=== PATIENT | male | born 1940 | race Caucasian/White ===

== ENCOUNTER 2021-04-28 13:17 | Inpatient (IN) | payer MEDICARE ==
[2021-04-28] VITALS (7 sets, daily range): BP systolic 109–149; BP diastolic 66–79
[~2021-04-28] VITALS: Ht 170.2 cm; Wt 73.5 kg
--- NOTE | 2021-04-28 13:24 | NUR ---
DR TERRLEL AT BEDSIDE
[2021-04-28] MEDS ORDERED: IV NS 0.9% 1,000 ML BAG IV ONE (13:30)
--- NOTE | 2021-04-28 13:55 | NUR ---
URINE SAMPLE COLLECTED VIA CARSON CATHETER. SENT SAMPLE TO LAB
--- NOTE | 2021-04-28 13:55 | NUR ---
PLACED IV ACCESS ON L AC #18 G, INTACT AND PATENT
[2021-04-28 13:58] LABS: BASOPHILS % (AUTO) 0.4 % (0.0-2.0); EOSINOPHILS % (AUTO) 0.1 % (0.0-6.0); HEMATOCRIT 33 % (39-51); HEMOGLOBIN 11.4 g/dL (13.5-17.5); LYMPHOCYTES # (AUTO) 0.5 K/uL (0.8-4.8); LYMPHOCYTES % (AUTO) 6.8 % (20.0-44.0); MEAN CORPUSCULAR HGB CONC 34 g/dl (31.0-36.0); MEAN CORPUSCULAR VOLUME 95 fL (80-96); MONOCYTES # (AUTO) 0.3 K/uL (0.1-1.30); MONOCYTES % (AUTO) 4.7 % (2.0-12.0); NEUTROPHILS # (AUTO) 5.9 K/uL (1.8-8.9); PLATELET COUNT (AUTO) 212 K/uL (150-450); RED BLOOD CELL COUNT(AUTO) 3.51 MIL/uL (4.5-6.0); WHITE BLOOD COUNT (AUTO) 6.8 K/uL (4.3-11.0)
[2021-04-28 14:28] LABS: CALCIUM, SERUM 8.5 mg/dL (8.5-10.1); CARBON DIOXIDE 27 mmol/L (21-32); CHLORIDE 105 mmol/L (98-107); CREATININE 2.2 mg/dL (0.6-1.3); GLUCOSE 155 mg/dL (74-106); SODIUM SERUM 143 mmol/L (136-145); UREA NITROGEN, BLOOD 55 mg/dL (7-18)
--- NOTE | 2021-04-28 14:28 | NUR ---
COVID SWAB DONE AND SENT TO LAB
[2021-04-28] MEDS ORDERED: PYRI60TA PO (14:29)
[2021-04-28] MEDS ORDERED: MESA0.37 PO (14:29)
[2021-04-28] MEDS ORDERED: MEMA10TA PO (14:29)
[2021-04-28] MEDS ORDERED: NIFE90TA2 PO (14:29)
[2021-04-28] MEDS ORDERED: CARB1TAB40 PO (14:29)
[2021-04-28] MEDS ORDERED: APIX2.5T PO (14:29)
[2021-04-28] MEDS ORDERED: FLUD0.1T PO (14:29)
[2021-04-28 14:33] LABS: ALANINE AMINOTRANSFERASE 11 U/L (12-78); ALBUMIN 2.7 g/dL (3.4-5.0); ALKALINE PHOSPHATASE 285 U/L (46-116); ASPARTATE AMINOTRANSFERASE 28 U/L (15-37); BILIRUBIN,DIRECT 0.2 mg/dL (0.0-0.2); BILIRUBIN,TOTAL 0.7 mg/dL (0.2-1.0); TOTAL PROTEIN, SERUM 6.5 g/dL (6.4-8.2)
--- NOTE | 2021-04-28 14:53 | NUR ---
PANEL ON-CALL PAGED
[2021-04-28 14:58] LABS: BILIRUBIN,URINE SMALL (NEGATIVE); COLOR,URINE YELLOW (YELLOW); LEUKOCYTE ESTERASE ,URINE NEGATIVE (NEGATIVE); NITRITE, URINE NEGATIVE (NEGATIVE); PROTEIN,URINE TRACE mg/dl (NEGATIVE); UGLUCOSE NEGATIVE (NEGATIVE); UROBILINOGEN,URINE 0.2 EU/dL (0.2)
[2021-04-28] MEDS ORDERED: PIPERACILLIN /TAZOBACTAM 3.375 G in IV D5W 50 ML IV ONE (15:00)
[2021-04-28] MEDS ORDERED: VANCOMYCIN 1 GM in IV D5W 250 ML IV ONE (15:00)
[2021-04-28 15:10] LABS: BACTERIA,URINE RARE /HPF (None Seen); RBC,URINE 0-2 /HPF (0-2); SQUAMOUS EPITHELIAL CELL,UR 0-2 /HPF (None Seen); URINE AMORPHOUS URATE Few /HPF (None Seen); WBC,URINE 0-2 /HPF (0-3)
[2021-04-28 15:11] LABS: COARSE GRANULAR CASTS,URINE Few /LPF (None Seen)
--- NOTE | 2021-04-28 16:01 | NUR ---
GOT ICU 259
--- NOTE | 2021-04-28 16:30 | NUR ---
REPORT GIVEN TO ERICKSON MALAVE FOR BECCA
--- NOTE | 2021-04-28 17:00 | NUR ---
TRANSFERRED TO ICU IN STABLE CONDITION
--- NOTE | 2021-04-28 17:00 | NUR ---
DIRECTOR OF ASSESSMENT NOTES PATIENT ADMITTED FROM ER 80Y/OLD MALE ON Dx OF ARF. PATIENT ON NON REBREATHER MASK O2-100%, VSS, SR-76 ON BEDSIDE MONITOR. PATIENT AWAKE CONFUSED, COMBATIVE, WAS KICKING, APPLIED SOFT RESTRAIN BILATERAL WRISTS, AND MITTENS . PATIENT TRYING TO REMOVE CARSON CATHETER. SKIN ASSESSMENT DONE PICTURE TAKEN, WOUND CONSULT TRIGGERED. SEEN HOSPITALIST DR LEHMAN. IV ACCESS ON LEFT AC AREA INTACT.CALL LIGHT WITHIN TO REACH. WILL FOLLOW UP.
--- NOTE | 2021-04-28 19:10 | NUR ---
RN NOTES RECEIVED REPORT FROM MORNING RN. PATIENT IN BED FAMILY AT BEDSIDE. ON NON REBREATHER MASK AT 15LPM SATING 100%. PATIENT ON BILATERAL SOFT RESTRAINTS AND BILATERAL MITTENS. WITH CARSON CATHETER CONNECTED TO URINR BAG PATENT DRAINING YELLOWISH URINE. SIDERAILS UP FOR SAFETY. HOB ELEVATED. CALL LIGHT WITHIN REACH. BED ON LOWEST POSITION AND LOCKED. WILL CLOSELY MONITOR THE PATIENT
[2021-04-28] MEDS ORDERED: ENOXAPARIN SODIUM 30 MG/0.3 ML DISP.SYRIN SQ SCH (19:30)
[2021-04-28] MEDS ORDERED: ONDANSETRON HCL/PF 4 MG/2 ML VIAL IVP PRN (19:30)
[2021-04-28] MEDS ORDERED: NOREPINEPHRINE 8 MG in IV NS 0.9% 242 ML IV PRN ×2 (19:30→20:00)
[2021-04-28] MEDS ORDERED: Z GUARD REMEDY 4 OZ OINT TP PRN (19:30)
[2021-04-28] MEDS ORDERED: ACETAMINOPHEN 325 MG TABLET PO PRN (19:30)
[2021-04-28] MEDS: IPRATROPIUM NEB FS 0.5 MG/2.5 ML AMPUL.NEB NEB SCH ×2 (19:54→23:51)
[2021-04-28] MEDS: ALBUTEROL FS 2.5 MG/3 ML VIAL.NEB NEB SCH ×2 (19:54→23:51)
--- NOTE | 2021-04-28 20:30 | NUR ---
RN NOTES RT AT BEDSIDE CHANGE NON REBREATHER TO NASAL CANULA AT 3 LPM. TOLERATING WELL SATING 97%. WILL CONTINUE TO MONITOR THE PATIENT
[2021-04-28] MEDS: HYDROCORTISONE SOD SUCCINATE 100 MG/2 ML VIAL IV SCH (21:09)
[2021-04-28] MEDS: ZOSYN IVPB 3.375 G in IV D5W 50ml IV SCH (23:48)
[2021-04-29] VITALS (21 sets, daily range): BP systolic 114–168; BP diastolic 62–120
[2021-04-29] MEDS ORDERED: PIPERACILLIN /TAZOBACTAM 2.25 G in IV D5W 50 ML IV SCH ×2
[2021-04-29] MEDS: IV NS 0.9% 1,000 ML IV PRN ×2 (02:45→11:05)
[2021-04-29] MEDS: IPRATROPIUM NEB FS 0.5 MG/2.5 ML AMPUL.NEB NEB SCH ×6 (03:17→22:50)
[2021-04-29] MEDS: ALBUTEROL FS 2.5 MG/3 ML VIAL.NEB NEB SCH ×6 (03:17→22:50)
[2021-04-29 04:28] LABS: BASOPHILS % (AUTO) 0.1 % (0.0-2.0); HEMATOCRIT 34 % (39-51); HEMOGLOBIN 11.3 g/dL (13.5-17.5); LYMPHOCYTES # (AUTO) 0.3 K/uL (0.8-4.8); LYMPHOCYTES % (AUTO) 3.6 % (20.0-44.0); MEAN CORPUSCULAR HGB CONC 34 g/dl (31.0-36.0); MEAN CORPUSCULAR VOLUME 95 fL (80-96); MONOCYTES # (AUTO) 0.2 K/uL (0.1-1.30); MONOCYTES % (AUTO) 2.1 % (2.0-12.0); NEUTROPHILS # (AUTO) 7.4 K/uL (1.8-8.9); NEUTROPHILS % (AUTO) 94.2 % (43.0-81.0); PLATELET COUNT (AUTO) 173 K/uL (150-450); RED BLOOD CELL COUNT(AUTO) 3.55 MIL/uL (4.5-6.0); WHITE BLOOD COUNT (AUTO) 7.8 K/uL (4.3-11.0)
[2021-04-29 04:52] LABS: ALANINE AMINOTRANSFERASE 15 U/L (12-78); ALBUMIN 2.7 g/dL (3.4-5.0); ALKALINE PHOSPHATASE 279 U/L (46-116); ASPARTATE AMINOTRANSFERASE 27 U/L (15-37); BILIRUBIN,TOTAL 0.6 mg/dL (0.2-1.0); CALCIUM, SERUM 8.3 mg/dL (8.5-10.1); CARBON DIOXIDE 29 mmol/L (21-32); CHLORIDE 106 mmol/L (98-107); CREATININE 2.1 mg/dL (0.6-1.3); GLUCOSE 140 mg/dL (74-106); MAGNESIUM 1.9 mg/dL (1.8-2.4); PHOSPHORUS 4.5 mg/dL (2.5-4.9); POTASSIUM 4.4 mmol/L (3.5-5.1); SODIUM SERUM 143 mmol/L (136-145); TOTAL PROTEIN, SERUM 6.8 g/dL (6.4-8.2); UREA NITROGEN, BLOOD 57 mg/dL (7-18)
[2021-04-29 04:59] LABS: CHOLESTEROL 161 mg/dL (<200); HDL CHOLESTEROL 94 mg/dL (40-60); LDL 55 mg/dL (0-99); THYROID STIMULATING HORMONE 2.387 uIU/mL (0.358-3.74); TRIGLYCERIDES 38 mg/dL (30-150)
[2021-04-29 05:03] LABS: IRON, SERUM 14 ug/dl (50-175); TOTAL IRON BINDING CAPACITY 199 ug/dl (250-450)
[2021-04-29] MEDS: HYDROCORTISONE SOD SUCCINATE 100 MG/2 ML VIAL IV SCH ×3 (05:07→21:40)
[2021-04-29] MEDS: ZOSYN IVPB 3.375 G in IV D5W 50ml IV SCH ×4 (05:55→23:37)
--- NOTE | 2021-04-29 06:47 | NUR ---
RN NOTES PATIENT REMAINS STABLE NO SIGNIFICANT CHANGES IN HEALTH CONDITION. PATIENT ON ON 2 LPM VIA NASAL CANULA. CARSON CATHETER PATENT. IVF NS @ 75CC/HR PATENT.STILL WITH BILATERAL SOFT RESTRAINTS AND BILATERAL MITTENS. HOB ELEVATED. CALL LIGHT WITHIN REACH BED ON LOWEST POSITION AND LOCKED. ALL NEEDS ATTENDED KEPT CLEAN AND DRY AT ALL TIMES. WILL ENDORSED TO MORNING NURSE FOR BECCA
--- NOTE | 2021-04-29 07:15 | NUR ---
RN OPENING NOTES RECEIVED PT IN BED. ON 2L O2 VIA NC, SATING 100%. NO SOB OR ANY S/S OF DISTRESS NOTED. BILATERAL SOFT WRIST RESTRAINTS AND BILATERAL MITTENS IN PLACE, CHECKED FOR CIRCULATION PER PROTOCOL. CARSON CATHETER IN PLACE DRAINING YELLOW COLORED URINE. SAFETY MEASURES IMPLEMENTED. CALL LIGHT WITHIN REACH. HOB ELEVATED. BED LOCKED AND IN LOWEST POSITION WITH SIDE RAILS UP X2. WILL CONTINUE TO MONITOR.
--- NOTE | 2021-04-29 07:31 | NUR ---
WOUND CARE CONSULT: PT BECOMES AGITATED AND COMBATIVE AT TIMES. DRESSINGS TO BILATERAL ARMS LEFT IN PLACE, DRY AND INTACT. REVIEWED PHOTOS WHICH INDICATE MULTIPLE SKIN TEARS TO ARMS, PRESENT ON ADMISSION. LEFT HIP DRY LESION NOTED AND BONY SACRAL AREA NOTED. DISCUSSED SKIN PROTECTION AND WOUND CARE WITH NURSING STAFF. PT TO BE PLACED ON MEL ISOFLEX LOW AIRLOSS BED. MD IN AGREEMENT WITH PLAN OF CARE.
[2021-04-29] MEDS: NIFEdipine XL (30MG) 30 MG TAB PO SCH ×2 (09:00→10:10)
[2021-04-29] MEDS: MESALAMINE 400 MG CAP PO SCH ×3 (09:00→17:00)
--- NOTE | 2021-04-29 09:30 | NUR ---
RN NOTES DELZICOL, PROCARDIA AND SINEMET CANNOT BE CRUSHED. PT UNABLE TO TAKE MEDS. MADE AWARE.
[2021-04-29] MEDS: PANTOPRAZOLE 40 MG VIAL IV SCH (10:06)
[2021-04-29] MEDS: PYRIDOSTIGMINE BROMIDE 60 MG TABLET PO SCH ×2 (10:07→17:56)
[2021-04-29] MEDS: MEMANTINE HCL 5 MG TABLET PO SCH ×2 (10:07→17:55)
[2021-04-29] MEDS: FLUDROCORTISONE 0.1 MG TABLET PO SCH (10:08)
[2021-04-29] MEDS: CARBIDOPA/LEV CR 50/200 MG 1 UDTAB.SA PO SCH ×2 (10:08→17:00)
[2021-04-29] MEDS: APIXABAN 2.5 MG TABLET PO SCH ×3 (10:09→18:03)
--- NOTE | 2021-04-29 12:00 | NUR ---
RN NOTES PT NOT TOLERATING PO INTAKE. PT COUGHING. MADE AWARE.
[2021-04-29] MEDS ORDERED: VANCOMYCIN HCL 0.75 GM in IV D5W 250 ML IV SCH (15:00)
--- NOTE | 2021-04-29 17:00 | NUR ---
RN NOTES CANNOT CRUSH DELZICOL AND SINEMET. PT COUGHING WITH PO INTAKE. NOT ADMINISTERED. MD AWARE.
[2021-04-29] MEDS: ENSURE ENLIVE CHOC 237 ML CAN PO SCH (17:55)
--- NOTE | 2021-04-29 19:04 | NUR ---
RN NOTES NO SIGNIFICANT CHANGES DURING SHIFT. NO SOB OR ANY S/S OF DISTRESS. ALL DUE MEDS GIVEN. NEEDS ATTENDED. KEPT CLEAN AND COMFORTABLE. FOR SWALLOW EVAL. SAFETY MEASURES IMPLEMENTED. ENDORSED TO NIGHT RN FOR BECCA.
--- NOTE | 2021-04-29 19:58 | NUR ---
ICU/RN: PT TRANSFERRED TO TELE ROOM 114-1 VIA ACLS PROTOCOL WITHOUT ICCIDENT. REPORT TO LANEY MALAVE FOR CONT OF CARE.
--- NOTE | 2021-04-29 20:00 | NUR ---
COMPOUND SPECIALISTTWILL CUTTER NOTES PATIENT ARRIVED ON UNIT VIA PATIENT BED WITH ICU NURSE. RECEIVED PATIENT SLEEPING IN BED EASILY AROUSABLE. A/O X 0. PATIENT WITH REGULAR AND UNLABORED BREATHING ON 2 LPM VIA NASAL CANULA, TOLERATED WELL. NO SIGNS OR SYMPTOMS OF DISTRESS NOTED. NO COMPLAINS OF PAIN OR DISCOMFORT NOTED AT THIS TIME. IV ACCESS LAC G # 20 INFUSING NS @ 75 ML/HR. IV ACCESS PATENT AND INTACT. SAFETY PRECAUTIONS ENFORCED WITH BED LOCKED AND AT LOWEST POSITION. CALL LIGHT WITHIN REACH AT ALL TIMES. WILL CONTINUE TO MONITOR PATIENT.
--- NOTE | 2021-04-29 22:05 | NUR ---
INFORMATION TECH NOTES PATIENT TEMP. 94.1 F. HOSPITALIST AWARE. AVTAR PAIGE ORDERED WILL CONTINUE TO MONITOR PATIENT.
[2021-04-30] VITALS: BP 124/78
[2021-04-30] MEDS: ALBUTEROL FS 2.5 MG/3 ML VIAL.NEB NEB SCH ×6 (02:31→23:13)
[2021-04-30] MEDS: IPRATROPIUM NEB FS 0.5 MG/2.5 ML AMPUL.NEB NEB SCH ×6 (02:31→23:13)
[2021-04-30 04:00] VITALS: BP 123/72
[2021-04-30] MEDS: ZOSYN IVPB 3.375 G in IV D5W 50ml IV SCH ×4 (05:09→23:35)
[2021-04-30] MEDS: HYDROCORTISONE SOD SUCCINATE 100 MG/2 ML VIAL IV SCH ×3 (05:09→21:47)
[2021-04-30] MEDS: IV NS 0.9% 1,000 ML IV PRN ×2 (05:13→23:31)
[2021-04-30 06:42] LABS: BASOPHILS % (AUTO) 0.1 % (0.0-2.0); HEMATOCRIT 30 % (39-51); HEMOGLOBIN 10.2 g/dL (13.5-17.5); LYMPHOCYTES # (AUTO) 0.3 K/uL (0.8-4.8); LYMPHOCYTES % (AUTO) 5.8 % (20.0-44.0); MEAN CORPUSCULAR HGB CONC 34 g/dl (31.0-36.0); MEAN CORPUSCULAR VOLUME 95 fL (80-96); MONOCYTES # (AUTO) 0.3 K/uL (0.1-1.30); MONOCYTES % (AUTO) 6.1 % (2.0-12.0); NEUTROPHILS # (AUTO) 4.6 K/uL (1.8-8.9); PLATELET COUNT (AUTO) 176 K/uL (150-450); RED BLOOD CELL COUNT(AUTO) 3.18 MIL/uL (4.5-6.0); WHITE BLOOD COUNT (AUTO) 5.2 K/uL (4.3-11.0)
--- NOTE | 2021-04-30 06:50 | NUR ---
PROCESSOR SOLID PROPELLANT CLOSING NOTES PATIENT STILL SLEEPING IN BED EASILY AROUSABLE. A/O X 0. PATIENT WITH REGULAR AND UNLABORED BREATHING ON 2 LPM VIA NASAL CANULA, TOLERATED WELL. NO SIGNS OR SYMPTOMS OF DISTRESS NOTED. NO COMPLAINS OF PAIN OR DISCOMFORT NOTED AT THIS TIME. PATIENT ON TELE MONITOR READING SR @ 69 BPM. IV ACCESS LAC G # 18 INFUSING NS @ 75 ML/HR. IV ACCESS PATENT AND INTACT. SAFETY PRECAUTIONS ENFORCED WITH BED LOCKED AND AT LOWEST POSITION. CALL LIGHT WITHIN REACH AT ALL TIMES. WILL ENDORSE CONTINUITY OF CARE TO DAY SHIFT NURSE.
[2021-04-30 07:00] LABS: CALCIUM, SERUM 8.4 mg/dL (8.5-10.1); CARBON DIOXIDE 26 mmol/L (21-32); CHLORIDE 110 mmol/L (98-107); CREATININE 1.9 mg/dL (0.6-1.3); GLUCOSE 132 mg/dL (74-106); MAGNESIUM 2.2 mg/dL (1.8-2.4); PHOSPHORUS 4.2 mg/dL (2.5-4.9); POTASSIUM 3.8 mmol/L (3.5-5.1); SODIUM SERUM 145 mmol/L (136-145); UREA NITROGEN, BLOOD 60 mg/dL (7-18)
--- NOTE | 2021-04-30 07:29 | NUR ---
RN OPENING NOTE PATIENT RECEIVED IN BED, SLEEPING. PATIENT ON 2L O2 NC WITH NO SIGNS OF LABORED BREATHING AT THIS TIME SATURATING 95% OF BEDSIDE PULSE OX MONITOR. CARSON CATH IN PLACE, PATENT. BILATERAL SOFT WRIST AND MITTENS ON, SKIN WARM RESTRAIN SITE WITH SOME SKIN DISCOLORATION AND SKIN TEAR PRESENT ON ADMISSION. LEFT AC 18G IN PLACE RUNNING NS AT 75CC/HR. NO SIGNS OF ACUTE DISTRESS AT THIS TIME. BED LOCKED AND IN LOWEST POSITION, CALL LIGHT WITHIN REACH, 3 SIDE RAILS UP. WILL CONTINUE TO MONITOR.
[2021-04-30 08:00] VITALS: BP 129/61
[2021-04-30] MEDS: ENSURE ENLIVE CHOC 237 ML CAN PO SCH ×2 (08:00→17:00)
--- NOTE | 2021-04-30 08:02 | NUR ---
RN NOTE PATIENT UNABLE TO EAT AT THIS TIME, HIGH RISK FOR ASPIRATION DUE TO ALTERED MENTAL STATUS. SWALLOW EVAL REQUESTED FOR TODAY. PO MEDS AND FOOD WILL BE HELD AT THIS TIME UNTIL CLEARED BY SPEECH THERAPIST. WILL CONTINUE TO MONITOR.
[2021-04-30] MEDS: PANTOPRAZOLE 40 MG VIAL IV SCH (08:07)
[2021-04-30] MEDS: APIXABAN 2.5 MG TABLET PO SCH ×2 (09:00→17:12)
[2021-04-30] MEDS: MESALAMINE 400 MG CAP PO SCH ×2 (09:00→17:00)
[2021-04-30] MEDS: MEMANTINE HCL 5 MG TABLET PO SCH ×2 (09:00→17:11)
[2021-04-30] MEDS: CARBIDOPA/LEV CR 50/200 MG 1 UDTAB.SA PO SCH ×2 (09:00→17:00)
[2021-04-30] MEDS: PYRIDOSTIGMINE BROMIDE 60 MG TABLET PO SCH ×2 (09:00→17:11)
[2021-04-30] MEDS: FLUDROCORTISONE 0.1 MG TABLET PO SCH (09:00)
[2021-04-30] MEDS: NIFEdipine XL (30MG) 30 MG TAB PO SCH (09:00)
[2021-04-30 12:00] VITALS: BP 151/97
--- NOTE | 2021-04-30 14:30 | NUR ---
RN NOTE NG TUBE PLACED, 55CM AT NOSE, SECURED PROPERLY. PENDING CXR FOR PROPER PLACEMENT CONFIRMATION. NO SIGNS OF RESPIRATORY DISTRESS AT THIS TIME, PATIENT SATURATING 95% ON BEDSIDE PULSE OX MONITOR. WILL CONTINUE TO MONITOR.
[2021-04-30 16:00] VITALS: BP 154/90
--- NOTE | 2021-04-30 17:13 | NUR ---
RN NOTE NG TUBE PLACED PER VICE PRESIDENT OF SALES JAN ORDER. PLACEMENT CONFIRMED WITH CXR. PO MEDS ADMINISTERED CRUSHED EXCEPT FOR SINEMET AND DELZICOT (UNABLE TO BE CRUSHED). WILL CONTINUE TO MONITOR.
--- NOTE | 2021-04-30 18:00 | NUR ---
RN NOTE OXYGEN SATURATION DOWN TO 88% ON 2L O2 NC. OXYGEN INCREASED TO 5L O2 NC TO MAINTAIN SATURATION ABOVE 90%.
--- NOTE | 2021-04-30 18:29 | NUR ---
RN NOTE SUGAR OF 143 ON ACCU CHECK. PT REFUSING INSULIN AT THIS TIME HE STATS NOT BEING HUNGRY. WILL CONTINUE TO MONITOR. Addendum: 04/30/21 at 1829 by MIAN BARRERA RN WRONG PT
--- NOTE | 2021-04-30 18:51 | NUR ---
RN NOTE PATIENT PLACED ON 12L O2 SIMPLE MASK TO MAINTAIN SATURATION ABOVE 90%. WILL CONTINUE TO MONITOR.
--- NOTE | 2021-04-30 18:52 | NUR ---
RN CLOSING NOTE PATIENT REMAINS IN BED, AWAKE, CONFUSED. PATIENT ON 12L O2 SIMPLE MASK WITH SOME SIGNS OF LABORED BREATHING, SATURATING 90% OF BEDSIDE MONITOR. CARSON CATH IN PLACE, PATENT. BILATERAL SOFT WRIST AND MITTENS ON, SKIN WARM ON RESTRAIN SITE WITH SOME SKIN DISCOLORATION AND SKIN TEAR PRESENT ON ADMISSION. LEFT AC 18G IN PLACE RUNNING NS AT 75CC/HR. BED LOCKED AND IN LOWEST POSITION, CALL LIGHT WITHIN REACH, 3 SIDE RAILS UP. WILL ENDORSE TO PRETZEL COOKER NURSE.
--- NOTE | 2021-04-30 19:47 | NUR ---
RN NOTE RECEIVED PATIENT IN BED, EYES CLOSED, NON-VERBAL. WITHDRAWS FROM LOCALIZED PAIN. UNABLE TO FOLLOW COMMANDS. NO DISTRESS NOTED. ON TELE MONITORING, SR AT 88 BPM. BREATHING EVEN AND UNLABORED, CURRENTLY RECIEVING BREATHING TREATMENT, OXYGEN SATURATION OF 94 PERCENT. SKIN WARM AND DRY. NOTED WITH NGT ON RIGHT NARE, NO FEEDING. HOB ELEVATED 40 DEGREES. LEFT AC 18 RUNNING NS AT 75 CC HR. INDWELLING ACRSON CATHETER DRAINING DEA COLORED URINE, BILATERAL SOFT WRIST RESTRAINTS, MITTEN GLOVES ON. BED LOW, IN LOCKED POSITION, CALL LIGHT WITHIN REACH, WILL CONTINUE TO MONITOR
[2021-04-30 20:00] VITALS: BP 151/83
--- NOTE | 2021-04-30 20:50 | NUR ---
RN NOTE INSERTED PERIPHERAL IV 20G ON RIGHT AC. PATENT WITH GOOD BLOOD RETURN.
[2021-05-01] VITALS: BP 139/6
--- NOTE | 2021-05-01 00:08 | NUR ---
RN NOTE PATIENT NOTED WITH OXYGEN SATURATION OF 87-88 PERCENT WITH SIMPLE MASK 10L. RT PLACED PATIENT ON NON-REBREATHER MASK 15L/MIN. SATURATION SLOWLY CLIMBED TO 100 PERCENT. PATIENT REPOSITIONED.
[2021-05-01] MEDS: IPRATROPIUM NEB FS 0.5 MG/2.5 ML AMPUL.NEB NEB SCH ×6 (03:53→23:17)
[2021-05-01] MEDS: ALBUTEROL FS 2.5 MG/3 ML VIAL.NEB NEB SCH ×6 (03:53→23:17)
[2021-05-01 04:00] VITALS: BP 145/98
[2021-05-01] MEDS: HYDROCORTISONE SOD SUCCINATE 100 MG/2 ML VIAL IV SCH ×3 (04:59→20:28)
[2021-05-01] MEDS: ZOSYN IVPB 3.375 G in IV D5W 50ml IV SCH ×3 (05:00→18:00)
[2021-05-01 06:29] LABS: HEMATOCRIT 28 % (39-51); HEMOGLOBIN 9.3 g/dL (13.5-17.5); LYMPHOCYTES # (AUTO) 0.2 K/uL (0.8-4.8); LYMPHOCYTES % (AUTO) 2.4 % (20.0-44.0); MEAN CORPUSCULAR HGB CONC 33 g/dl (31.0-36.0); MEAN CORPUSCULAR VOLUME 97 fL (80-96); MONOCYTES # (AUTO) 0.6 K/uL (0.1-1.30); MONOCYTES % (AUTO) 7.7 % (2.0-12.0); NEUTROPHILS # (AUTO) 6.7 K/uL (1.8-8.9); NEUTROPHILS % (AUTO) 89.9 % (43.0-81.0); PLATELET COUNT (AUTO) 172 K/uL (150-450); WHITE BLOOD COUNT (AUTO) 7.5 K/uL (4.3-11.0)
[2021-05-01 07:01] LABS: CALCIUM, SERUM 7.4 mg/dL (8.5-10.1); CARBON DIOXIDE 22 mmol/L (21-32); CHLORIDE 99 mmol/L (98-107); CREATININE 2.4 mg/dL (0.6-1.3); MAGNESIUM 2.1 mg/dL (1.8-2.4); PHOSPHORUS 3.3 mg/dL (2.5-4.9); SODIUM SERUM 145 mmol/L (136-145); UREA NITROGEN, BLOOD 56 mg/dL (7-18)
[2021-05-01 07:25] LABS: POTASSIUM 2.6 mmol/L (3.5-5.1)
[2021-05-01 07:26] LABS: GLUCOSE 539 mg/dL (74-106)
--- NOTE | 2021-05-01 07:30 | NUR ---
TD RN AM NOTE PATIENT IN BED, ASLEEP, RESPONDS TO TOUCH/SLIGHT PAIN, ON SIMPLE MASK 8L SLEEPING. PATIENT ON 2L O2 NC WITH NO SIGNS OF SOB, DISTRESS, O2 SAT AT 95% BEDSIDE PULSE OX MONITOR. LEFT AC 18 AND RT AC 20G WITH NS AT 75 ML/HR INFUSING WELL, BOTH SITES CLEAR. WITH NGT, NPO FOR NOW, FOR SWALLOW EVAL, POCKETS FOOD, CARSON CATH IN PLACE, PATENT, DEA COLORED RUINE OUTPUT. BILATERAL SOFT WRIST AND MITTENS ON, RELEASED AND CHECKED FOR CIRCULATION,THEN Q 2 HOURS. SEE NURSING FLOWSHEET FOR SKIN ISSUES. BED LOCKED AND IN LOWEST POSITION, CALL LIGHT WITHIN REACH, 3 SIDE RAILS UP. WILL CONTINUE TO MONITOR.
[2021-05-01 07:59] LABS: CALCIUM, SERUM 8.5 mg/dL (8.5-10.1); CARBON DIOXIDE 27 mmol/L (21-32); CHLORIDE 112 mmol/L (98-107); CREATININE 2.1 mg/dL (0.6-1.3); GLUCOSE 141 mg/dL (74-106); SODIUM SERUM 149 mmol/L (136-145); UREA NITROGEN, BLOOD 60 mg/dL (7-18)
[2021-05-01 08:00] VITALS: BP 163/99
[2021-05-01] MEDS: ENSURE ENLIVE CHOC 237 ML CAN PO SCH ×2 (08:10→17:00)
[2021-05-01] MEDS: MESALAMINE 400 MG CAP PO SCH ×2 (08:27→17:00)
[2021-05-01] MEDS: CARBIDOPA/LEV CR 50/200 MG 1 UDTAB.SA PO SCH ×3 (08:29→17:56)
[2021-05-01] MEDS: PANTOPRAZOLE 40 MG VIAL IV SCH (08:35)
[2021-05-01] MEDS: NIFEdipine XL (30MG) 30 MG TAB PO SCH (08:36)
[2021-05-01] MEDS: FLUDROCORTISONE 0.1 MG TABLET PO SCH (08:37)
[2021-05-01] MEDS: PYRIDOSTIGMINE BROMIDE 60 MG TABLET PO SCH ×2 (08:37→17:56)
[2021-05-01] MEDS: MEMANTINE HCL 5 MG TABLET PO SCH ×2 (08:37→18:00)
[2021-05-01] MEDS: APIXABAN 2.5 MG TABLET PO SCH ×2 (08:38→18:37)
[2021-05-01 12:00] VITALS: BP 170/99
--- NOTE | 2021-05-01 12:00 | NUR ---
RN NOTE FAILED SWALLOW EVAL PLACED ON NPO STATUS
[2021-05-01] MEDS: POTASSIUM CL. PREMIX PERIPHER. 50 ML IV SCH ×2 (12:23→13:32)
[2021-05-01] MEDS: IV D5W 1,000 ML IV PRN ×2 (12:24→23:17)
[2021-05-01 16:00] VITALS: BP 104/56
--- NOTE | 2021-05-01 16:00 | NUR ---
RN NOTE REDUCED O2 TO 6L SAT 99
--- NOTE | 2021-05-01 16:30 | NUR ---
RN NOTE REMOVED THE MASK TO SEE 02 STATUS. PATIENT SATING 97/98 ON ROOM AIR. Addendum: 05/01/21 at 1714 by REYNA QUINTANA RN FAMILY AT BEDSIDE.
[2021-05-01 20:00] VITALS: BP 122/73
--- NOTE | 2021-05-01 20:23 | NUR ---
RN NOTE PATIENT IN BED, OPENS EYES. CONFUSED. ON ROOM AIR, NO S/S OF RESPIRATORY DISTRESS. NO FACIAL GRIMACING OR ANY SIGNS OF DISCOMFORT. CARSON CATH PATENT AND INTACT, DRAINING URINE VIA GRAVITY. IV ACCESS ON ASYA MIDLINE IVF INFUSING. NO S/S OF INFILTRATION. BED LOCKED AND IN LOWEST POSITION. CALL LIGHT WITHIN REACH. WILL CONTINUE TO MONITOR.
[2021-05-02] VITALS: BP 129/81
[2021-05-02] MEDS: ZOSYN IVPB 3.375 G in IV D5W 50ml IV SCH ×4 (00:14→17:46)
[2021-05-02] MEDS: ALBUTEROL FS 2.5 MG/3 ML VIAL.NEB NEB SCH ×5 (03:42→20:16)
[2021-05-02] MEDS: IPRATROPIUM NEB FS 0.5 MG/2.5 ML AMPUL.NEB NEB SCH ×5 (03:42→20:16)
[2021-05-02 04:00] VITALS: BP 160/84
[2021-05-02] MEDS: HYDROCORTISONE SOD SUCCINATE 100 MG/2 ML VIAL IV SCH ×3 (05:00→21:14)
[2021-05-02 06:26] LABS: HEMATOCRIT 33 % (39-51); LYMPHOCYTES # (AUTO) 0.5 K/uL (0.8-4.8); LYMPHOCYTES % (AUTO) 4.2 % (20.0-44.0); MEAN CORPUSCULAR HGB CONC 34 g/dl (31.0-36.0); MEAN CORPUSCULAR VOLUME 95 fL (80-96); MONOCYTES # (AUTO) 0.8 K/uL (0.1-1.30); MONOCYTES % (AUTO) 7.4 % (2.0-12.0); NEUTROPHILS # (AUTO) 9.4 K/uL (1.8-8.9); NEUTROPHILS % (AUTO) 88.4 % (43.0-81.0); PLATELET COUNT (AUTO) 213 K/uL (150-450); RED BLOOD CELL COUNT(AUTO) 3.44 MIL/uL (4.5-6.0); WHITE BLOOD COUNT (AUTO) 10.7 K/uL (4.3-11.0)
--- NOTE | 2021-05-02 06:44 | NUR ---
RN NOTE PATIENT RESTING IN BED, CONFUSED. ON VENTURI MASK 6L, 28%, O2 100%. CARSON CATH PATENT AND INTACT OUTPUT 1000CC. IV ACCESS ON ASYA MIDLINE IVF D5W @ 100ML/HR. TURNED AND REPOSITIONED. BED LOCKED AND IN LOWEST POSITION. CALL LIGHT WITHIN REACH. WILL ENDORSE TO AM SHIFT.
[2021-05-02 07:34] LABS: CALCIUM, SERUM 8.8 mg/dL (8.5-10.1); CARBON DIOXIDE 26 mmol/L (21-32); CHLORIDE 106 mmol/L (98-107); CREATININE 1.7 mg/dL (0.6-1.3); GLUCOSE 129 mg/dL (74-106); MAGNESIUM 1.7 mg/dL (1.8-2.4); PHOSPHORUS 2.8 mg/dL (2.5-4.9); SODIUM SERUM 143 mmol/L (136-145); UREA NITROGEN, BLOOD 50 mg/dL (7-18)
[2021-05-02 08:00] VITALS: BP 178/80
[2021-05-02 08:05] LABS: POTASSIUM 2.8 mmol/L (3.5-5.1)
[2021-05-02] MEDS: MEMANTINE HCL 5 MG TABLET PO SCH ×2 (08:35→17:45)
[2021-05-02] MEDS: PANTOPRAZOLE 40 MG VIAL IV SCH (08:35)
[2021-05-02] MEDS: PYRIDOSTIGMINE BROMIDE 60 MG TABLET PO SCH ×2 (08:35→17:44)
[2021-05-02] MEDS: MESALAMINE 400 MG CAP PO SCH ×2 (08:35→17:44)
[2021-05-02] MEDS: NIFEdipine XL (30MG) 30 MG TAB PO SCH (08:37)
[2021-05-02] MEDS: APIXABAN 2.5 MG TABLET PO SCH ×2 (08:39→17:47)
[2021-05-02] MEDS: CARBIDOPA/LEV CR 50/200 MG 1 UDTAB.SA PO SCH ×2 (08:40→17:45)
[2021-05-02] MEDS: ENSURE ENLIVE CHOC 237 ML CAN PO SCH ×2 (08:50→17:00)
[2021-05-02] MEDS ORDERED: POTASSIUM CHLORIDE 20 MEQ POWDER PACKET GT ONE (10:00)
[2021-05-02] MEDS ORDERED: MAGNESIUM OXIDE 400 MG TABLET PO ONE (10:00)
[2021-05-02] MEDS: ACETYLCYSTEINE 10% SOLN 400 MG/4 ML VIAL NEB SCH ×2 (11:10→15:09)
[2021-05-02] MEDS ORDERED: IV NS 0.9% 1,000 ML IV ONE (12:00)
[2021-05-02 12:11] VITALS: BP 78/41
[2021-05-02] MEDS ORDERED: JEVITY 1.2 CAL 1,000 ML BOTTLE GT PRN (13:30)
[2021-05-02 16:00] VITALS: BP 109/65
--- NOTE | 2021-05-02 19:15 | NUR ---
RN OPENING NOTES RECEIVED PATIENT ON BED, AWAKE, A/O X 1, CONFUSED, ON VENTURI MASK @ 6LPM, RESPIRATORY EVEN AND UNLABORED, REMAIN AFEBRILE, NO S/S OF DISTRESS NOTED. PATIENT NOTED WITH ASYA MID LINE, RAC #20 PERIPHERAL LINE, LAC #20 PERIPHERAL LINE, INTACT IN PLACED, FLUSHED WITH NS. NO INFILTRATION NOTED AT SITE. RUNNING ON D5W 1L @ 100 ML/HR. WITH NG-TUBE INSERTED ON THE LEFT NARES, IN PLACED, VERIFIED PLACEMENT BY AUSCULTATION, WITH NO RESIDUAL NOTED UPON ASPIRATION, NG TUBE IS CLAMPED. ALL SAFETY PRECAUTION PROVIDED, BED IN LOWEST POSITION, LOCKED. CONTINUE TO MONITOR.
--- NOTE | 2021-05-02 19:23 | NUR ---
CHANGE OF SHIFT REPORT PT RESTING COMFORTABLY IN BED. NO S/S OR C/O PAIN OR DISTRESS NOTED. SIDE RAILS UP X2, CALL LIGHT LEFT WITHIN REACH. PT KEPT CLEAN, DRY, AND COMFORTABLE. REPORT GIVEN TO BREANNA MALAVE.
[2021-05-02 20:00] VITALS: BP 126/63
--- NOTE | 2021-05-02 22:50 | NUR ---
RN NOTES NG TUBE IN PLACED, VERIFIED PLACEMENT BY AUSCULTATION, WITH NO RESIDUAL NOTED UPON ASPIRATION, STARTED JEVITY 1.2 @ 30 ML/HR. HEAD OF BED RAISED TO 45 DEGREE ANGLE. CONTINUE TO MONITOR.
[2021-05-02] MEDS: JEVITY 1.2 CAL 1,000 ML BOTTLE GT PRN (22:51)
[2021-05-03] VITALS: BP 153/74
[2021-05-03] MEDS: IPRATROPIUM NEB FS 0.5 MG/2.5 ML AMPUL.NEB NEB SCH ×8 (00:10→23:39)
[2021-05-03] MEDS: ALBUTEROL FS 2.5 MG/3 ML VIAL.NEB NEB SCH ×8 (00:10→23:39)
[2021-05-03] MEDS: ACETYLCYSTEINE 10% SOLN 400 MG/4 ML VIAL NEB SCH ×4 (00:10→23:40)
[2021-05-03] MEDS: ZOSYN IVPB 3.375 G in IV D5W 50ml IV SCH ×4 (00:27→18:04)
[2021-05-03] MEDS: IV D5W 1,000 ML IV PRN (00:48)
[2021-05-03 04:00] VITALS: BP 158/90
[2021-05-03] MEDS: HYDROCORTISONE SOD SUCCINATE 100 MG/2 ML VIAL IV SCH ×3 (05:29→21:25)
[2021-05-03 07:05] LABS: BASOPHILS % (AUTO) 0.2 % (0.0-2.0); HEMATOCRIT 33 % (39-51); HEMOGLOBIN 11.1 g/dL (13.5-17.5); LYMPHOCYTES # (AUTO) 0.4 K/uL (0.8-4.8); LYMPHOCYTES % (AUTO) 5.5 % (20.0-44.0); MEAN CORPUSCULAR HGB CONC 34 g/dl (31.0-36.0); MEAN CORPUSCULAR VOLUME 94 fL (80-96); MONOCYTES # (AUTO) 0.8 K/uL (0.1-1.30); MONOCYTES % (AUTO) 9.6 % (2.0-12.0); NEUTROPHILS # (AUTO) 6.6 K/uL (1.8-8.9); NEUTROPHILS % (AUTO) 84.7 % (43.0-81.0); PLATELET COUNT (AUTO) 191 K/uL (150-450); RED BLOOD CELL COUNT(AUTO) 3.49 MIL/uL (4.5-6.0); WHITE BLOOD COUNT (AUTO) 7.8 K/uL (4.3-11.0)
[2021-05-03 07:09] LABS: CALCIUM, SERUM 8.5 mg/dL (8.5-10.1); CARBON DIOXIDE 29 mmol/L (21-32); CHLORIDE 102 mmol/L (98-107); CREATININE 1.6 mg/dL (0.6-1.3); GLUCOSE 166 mg/dL (74-106); MAGNESIUM 1.4 mg/dL (1.8-2.4); PHOSPHORUS 2.9 mg/dL (2.5-4.9); SODIUM SERUM 140 mmol/L (136-145); UREA NITROGEN, BLOOD 41 mg/dL (7-18)
--- NOTE | 2021-05-03 07:18 | NUR ---
RN CLOSING NOTES PATIENT REMAIN STABLE THROUGH OUT THE SHIFT, RESPIRATORY EVEN AND UNLABORED, REMAIN AFEBRILE, NO S/S OF DISTRESS NOTED. RUNNING ON D5W 1L @ 100 ML/HR. WITH NG-TUBE INSERTED ON THE LEFT NARES, IN PLACED, VERIFIED PLACEMENT BY AUSCULTATION, WITH NO RESIDUAL NOTED UPON ASPIRATION, RUNNING WITH JEVITY 1.2 @ 30 ML/HR GOAL IS 60ML/HR X 24 HRS. ALL DUE MEDS GIVEN ORDERED. ALL SAFETY PRECAUTION PROVIDED, BED IN LOWEST POSITION, LOCKED. CONTINUE TO MONITOR.
[2021-05-03 08:00] VITALS: BP 180/84
[2021-05-03] MEDS: ENSURE ENLIVE CHOC 237 ML CAN PO SCH ×2 (08:00→16:57)
[2021-05-03 08:05] LABS: POTASSIUM 2.4 mmol/L (3.5-5.1)
--- NOTE | 2021-05-03 08:05 | NUR ---
RN OPENING NOTE-PATIENT ON BED, AWAKE, A/O X 1, CONFUSED, ON VENTURI MASK @ 6LPM, RESPIRATORY EVEN AND NON-LABORED, NO S/S OF DISTRESS NOTED. PATIENT NOTED WITH ASYA MID LINE, RAC #20 PERIPHERAL LINE, LAC #20 PERIPHERAL LINE, INTACT IN PLACED, FLUSHED WITH NS. NO INFILTRATION NOTED AT SITE. RUNNING ON D5W 1L @ 100 ML/HR. WITH NG-TUBE INSERTED ON THE LEFT NARES. ALL SAFETY PRECAUTION PROVIDED, BED IN LOWEST POSITION, LOCKED. CONTINUE TO MONITOR. LAB PHONED. K - 2.4. NOTIFIED
--- NOTE | 2021-05-03 08:28 | NUR ---
RN NOTE- K 2.4, DR TALAVERA ORDERED KCL 80 MEQ IV. COMPLIED
[2021-05-03] MEDS: POTASSIUM CL. PREMIX PERIPHER. 50 ML IV SCH ×8 (08:36→16:23)
[2021-05-03] MEDS: NIFEdipine XL (30MG) 30 MG TAB PO SCH (08:37)
[2021-05-03] MEDS: PYRIDOSTIGMINE BROMIDE 60 MG TABLET PO SCH ×2 (08:37→16:53)
[2021-05-03] MEDS: MEMANTINE HCL 5 MG TABLET PO SCH ×2 (08:37→16:53)
[2021-05-03] MEDS: MESALAMINE 400 MG CAP PO SCH ×2 (08:37→16:53)
[2021-05-03] MEDS: APIXABAN 2.5 MG TABLET PO SCH ×2 (08:38→16:56)
[2021-05-03] MEDS: CARBIDOPA/LEV CR 50/200 MG 1 UDTAB.SA PO SCH ×2 (08:40→17:08)
[2021-05-03] MEDS: PANTOPRAZOLE 40 MG/PACK PACK NG SCH (08:48)
[2021-05-03] MEDS: Magnesium 1GM/D5W 100ML PREMIX 100 ML IV SCH ×2 (11:17→12:13)
[2021-05-03 12:00] VITALS: BP 120/64
[2021-05-03 16:00] VITALS: BP 102/62
--- NOTE | 2021-05-03 18:52 | NUR ---
RN CLOSING NOTE-PATIENT ON BED, AWAKE, A/O X 1, CONFUSED, RESPIRATIONS EVEN AND NON-LABORED, NO S/S OF DISTRESS NOTED. PATIENT NOTED WITH ASYA MID LINE, RAC #20 PERIPHERAL LINE, LAC #20 PERIPHERAL LINE, INTACT IN PLACED, FLUSHED WITH NS. NO INFILTRATION NOTED AT SITE. TF INCREASED TO 40/HR. INCREASED RESIDUAL. RUNNING ON D5W 1L @ 100 ML/HR. WITH NG-TUBE INSERTED ON THE LEFT NARES. ALL SAFETY PRECAUTION PROVIDED, BED IN LOWEST POSITION, LOCKED. CONTINUE TO MONITOR.
--- NOTE | 2021-05-03 19:15 | NUR ---
RN OPENING NOTES RECEIVED PATIENT ON BED, AWAKE, A/O X 1, CONFUSED, ON ROOM AIR SATING AT 96%, RESPIRATORY EVEN AND UNLABORED, REMAIN AFEBRILE, NO S/S OF DISTRESS NOTED. PATIENT NOTED WITH ASYA MID LINE, RAC #20 PERIPHERAL LINE, LAC #20 PERIPHERAL LINE, INTACT IN PLACED, FLUSHED WITH NS. NO INFILTRATION NOTED AT SITE. RUNNING ON D5W 1L @ 100 ML/HR. WITH NG-TUBE INSERTED ON THE LEFT NARES, IN PLACED, VERIFIED PLACEMENT BY AUSCULTATION, WITH NO RESIDUAL NOTED UPON ASPIRATION, RUNNING WITH JEVITY 1.2 @ 40ML/HR GOAL IS 60 ML/HR X 24 HRS. ON CARSON CATHETER GRAINING WELL VIA GRAVITY NO HEMATURIA NOTED. . ALL SAFETY PRECAUTION PROVIDED, BED IN LOWEST POSITION, LOCKED. CONTINUE TO MONITOR.
[2021-05-03 20:00] VITALS: BP 183/105
--- NOTE | 2021-05-03 20:45 | NUR ---
RN NOTES NOTED WITH BLOOD PRESSURE- 183/105, NOTIFIED DR. ASTUDILLO, LEFT MESSAGE, WAITING FOR CALL BACK.
--- NOTE | 2021-05-03 21:00 | NUR ---
RN NOTES DR. YIP CALLED BACK WITH NEW ORDER HYDRALAZINE 25 MG Q6 PRN FOR SBP ABOVE 160 NOTED AND CARRIED OUT.
[2021-05-03] MEDS: hydrALAZINE HCL 25 MG TABLET PO SCH (21:26)
--- NOTE | 2021-05-03 22:12 | NUR ---
RN NOTES BLOOD PRESSURE RECHECKED OBTAINED 153/84. CONTINUE TO MONITOR.
[2021-05-04] VITALS: BP 151/72
[2021-05-04] MEDS: ZOSYN IVPB 3.375 G in IV D5W 50ml IV SCH ×5 (00:27→23:32)
[2021-05-04] MEDS: IPRATROPIUM NEB FS 0.5 MG/2.5 ML AMPUL.NEB NEB SCH ×6 (03:19→23:06)
[2021-05-04] MEDS: ALBUTEROL FS 2.5 MG/3 ML VIAL.NEB NEB SCH ×6 (03:19→23:06)
[2021-05-04 04:00] VITALS: BP 133/80
[2021-05-04] MEDS: IV D5W 1,000 ML IV PRN ×2 (05:19→20:34)
[2021-05-04] MEDS: HYDROCORTISONE SOD SUCCINATE 100 MG/2 ML VIAL IV SCH ×3 (05:19→21:43)
[2021-05-04] MEDS: JEVITY 1.2 CAL 1,000 ML BOTTLE GT PRN (06:33)
[2021-05-04 07:08] LABS: CALCIUM, SERUM 8.3 mg/dL (8.5-10.1); CARBON DIOXIDE 27 mmol/L (21-32); CHLORIDE 97 mmol/L (98-107); CREATININE 1.8 mg/dL (0.6-1.3); GLUCOSE 177 mg/dL (74-106); MAGNESIUM 1.6 mg/dL (1.8-2.4); POTASSIUM 2.9 mmol/L (3.5-5.1); SODIUM SERUM 134 mmol/L (136-145); UREA NITROGEN, BLOOD 41 mg/dL (7-18)
--- NOTE | 2021-05-04 07:25 | NUR ---
RN CLOSING NOTES REMAIN STABLE STABLE THROUGH OUT THE SHIFT. RESPIRATORY EVEN AND UNLABORED, REMAIN AFEBRILE, NO S/S OF DISTRESS NOTED. RUNNING ON D5W 1L @ 100 ML/HR. WITH NG-TUBE INSERTED ON THE LEFT NARES, RUNNING WITH JEVITY 1.2 @ 40ML/HR GOAL IS 60 ML/HR X 24 HRS. HEAD OF BED KEPT ELEVATED. ON CARSON CATHETER GRAINING WELL VIA GRAVITY NO HEMATURIA NOTED. ALL DUE MEDS GIVEN ORDERED. ALL SAFETY PRECAUTION PROVIDED, BED IN LOWEST POSITION, LOCKED. CONTINUE TO MONITOR.
--- NOTE | 2021-05-04 07:57 | NUR ---
PRIVACY COMPLIANCE MANAGER OPENING NOTES RECEIVED PATIENT ON BED, AWAKE, A/O X 1, CONFUSED, ON ROOM AIR SATING AT 95%, RESPIRATORY EVEN AND UNLABORED, BREATHING EXPANSION IS EQUAL. REMAINS AFEBRILE, NO S/S OF CHEST DISCOMFORT OR ACUTE DISTRESS NOTED. PATIENT NOTED WITH ASYA MID LINE, RAC #20 PERIPHERAL LINE, LAC #20 PERIPHERAL LINE, INTACT IN PLACED, FLUSHED WITH NS. NO INFILTRATION NOTED AT SITE. RUNNING ON D5W 1L @ 100 ML/HR. WITH NG-TUBE INSERTED ON THE LEFT NARES, IN PLACED, VERIFIED PLACEMENT BY AUSCULTATION. TUBE FEEDING RUNNING WITH JEVITY 1.2 @ 40ML/HR GOAL IS 60 ML/HR X 24 HRS. ON CARSON CATHETER GRAINING WELL VIA GRAVITY NO HEMATURIA NOTED. . ALL SAFETY PRECAUTION PROVIDED, BED IN LOWEST POSITION, LOCKED. WILL CONTINUE TO MONITOR.
[2021-05-04 08:00] VITALS: BP 150/79
[2021-05-04] MEDS: ACETYLCYSTEINE 10% SOLN 400 MG/4 ML VIAL NEB SCH ×3 (08:07→23:06)
[2021-05-04] MEDS: PYRIDOSTIGMINE BROMIDE 60 MG TABLET PO SCH ×2 (08:32→17:10)
[2021-05-04] MEDS: NIFEdipine XL (30MG) 30 MG TAB PO SCH (08:32)
[2021-05-04] MEDS: MEMANTINE HCL 5 MG TABLET PO SCH ×2 (08:32→17:09)
[2021-05-04] MEDS: MESALAMINE 400 MG CAP PO SCH ×2 (08:32→17:09)
[2021-05-04] MEDS: PANTOPRAZOLE 40 MG/PACK PACK NG SCH (08:33)
[2021-05-04] MEDS: CARBIDOPA/LEV CR 50/200 MG 1 UDTAB.SA PO SCH ×2 (08:33→17:17)
[2021-05-04] MEDS: APIXABAN 2.5 MG TABLET PO SCH ×2 (08:34→17:10)
[2021-05-04] MEDS: ENSURE ENLIVE CHOC 237 ML CAN PO SCH ×2 (08:35→17:04)
[2021-05-04 12:00] VITALS: BP 102/59
[2021-05-04] MEDS: Magnesium 1GM/D5W 100ML PREMIX 100 ML IV SCH ×2 (12:38→13:07)
[2021-05-04] MEDS: POTASSIUM CL. PREMIX PERIPHER. 50 ML IV SCH ×5 (12:39→15:32)
[2021-05-04 16:00] VITALS: BP 133/69
--- NOTE | 2021-05-04 18:42 | NUR ---
CREPE MAKER CLOSING NOTES PATIENT REMAINED STABLE STABLE THROUGH OUT THE SHIFT. RESPIRATORY EVEN AND UNLABORED, REMAIN AFEBRILE, NO S/S OF DISTRESS NOTED. KEPT CLEAN AND DRY THROUGH THE SHIFT. RUNNING ON D5W 1L @ 100 ML/HR. WITH NG-TUBE INSERTED ON THE LEFT NARES, RUNNING WITH JEVITY 1.2 @ 40ML/HR GOAL IS 60 ML/HR X 24 HRS. HEAD OF BED KEPT ELEVATED. ON CARSON CATHETER GRAINING WELL VIA GRAVITY NO HEMATURIA NOTED. ALL DUE MEDS GIVEN ORDERED. ALL SAFETY PRECAUTION PROVIDED, BED IN LOWEST POSITION, LOCKED. WILL ENDORSE TO AUDIT OFFICER FOR BECCA.
--- NOTE | 2021-05-04 19:34 | NUR ---
RN OPENING NOTES RECEIVED PATIENT IN BED, SLEEPING AT THIS MOMENT BUT EASILY AROUSABLE, A/O X 1, VERY CONFUSED. ON ROOM AIR AND PT TOLERATED WELL. BREATHING EVEN AND UNLABORED. IV ACCES ON ASYA MID LINE, RAC #20G, LAC #20G, INTACT AND PATENT. NO S/S OF INFILTRATIONS. RUNNING ON D5W 1000CC @ 100 ML/HR. NG-TUBE IN PLACE. VERIFIED PLACEMENT BY AUSCULTATION. TUBE FEEDING RUNNING WITH JEVITY 1.2 @ 40ML/HR GOAL IS 60 ML/HR X 24 HRS. CARSON CATHETER INTACT AND PATENT WITH YELLOW/CLOUDY URINE. NO HEMATURIA NOTED. NO FACIAL GRIMACING NOTED. NO ACUTE DISTRESS. ALL SAFETY MEASURE IN PLACE. BED IN LOWEST POSITION AND LOCKED. PLACE CALL LIGHT WITH IN REACH. WILL CONTINUE TO MONITOR.
[2021-05-04 20:00] VITALS: BP 141/68
[2021-05-05] VITALS: BP 151/77
[2021-05-05] MEDS: IPRATROPIUM NEB FS 0.5 MG/2.5 ML AMPUL.NEB NEB SCH ×6 (03:36→23:36)
[2021-05-05] MEDS: ALBUTEROL FS 2.5 MG/3 ML VIAL.NEB NEB SCH ×6 (03:36→23:36)
[2021-05-05 04:00] VITALS: BP 157/86
[2021-05-05] MEDS: HYDROCORTISONE SOD SUCCINATE 100 MG/2 ML VIAL IV SCH ×3 (04:33→21:50)
[2021-05-05] MEDS: ZOSYN IVPB 3.375 G in IV D5W 50ml IV SCH ×4 (05:14→23:56)
--- NOTE | 2021-05-05 06:49 | NUR ---
RN CLOSING NOTES PATIENT IN BED, SLEEPING BUT EASILY AROUSABLE, A/O X 1, VERY CONFUSED AND RESPONSIVE TO PAINFUL STIMULI. PT IS ON VENTURI MASK, O2 SAT SETTING 99%. AND PT TOLERATED WELL. BREATHING EVEN AND UNLABORED. IV ACCESS ON ASYA MID LINE, RAC #20G, LAC #20G, INTACT AND PATENT. NO S/S OF INFILTRATIONS. RUNNING ON D5W 1000CC @ 100 ML/HR. NG-TUBE IN PLACE. VERIFIED PLACEMENT BY AUSCULTATION. TUBE FEEDING RUNNING WITH JEVITY 1.2 @ 40ML/HR GOAL IS 60 ML/HR X 24 HRS. ALL DUE MEDS GIVEN ORDERED, CARSON CATHETER INTACT AND PATENT WITH YELLOW/CLOUDY URINE. NO FACIAL GRIMACING NOTED. NO ACUTE DISTRESS. ALL SAFETY MEASURE IN PLACE. BED IN LOWEST POSITION AND LOCKED. PLACE CALL LIGHT WITH IN REACH. WILL ENDORSE TO MORNING SHIFT NURSE.
[2021-05-05 07:53] LABS: CARBON DIOXIDE 28 mmol/L (21-32); CHLORIDE 95 mmol/L (98-107); GLUCOSE 202 mg/dL (74-106); MAGNESIUM 2.2 mg/dL (1.8-2.4); SODIUM SERUM 131 mmol/L (136-145); UREA NITROGEN, BLOOD 48 mg/dL (7-18)
[2021-05-05 08:00] VITALS: BP 170/100
[2021-05-05] MEDS: ACETYLCYSTEINE 10% SOLN 400 MG/4 ML VIAL NEB SCH ×4 (08:11→23:37)
[2021-05-05] MEDS: ENSURE ENLIVE CHOC 237 ML CAN PO SCH ×2 (08:44→17:00)
[2021-05-05] MEDS: PANTOPRAZOLE 40 MG/PACK PACK NG SCH (08:57)
[2021-05-05] MEDS: hydrALAZINE HCL 25 MG TABLET PO SCH (08:58)
[2021-05-05] MEDS: PYRIDOSTIGMINE BROMIDE 60 MG TABLET PO SCH ×2 (08:58→17:07)
[2021-05-05] MEDS: CARBIDOPA/LEV CR 50/200 MG 1 UDTAB.SA PO SCH ×2 (09:00→17:00)
[2021-05-05] MEDS: NIFEdipine XL (30MG) 30 MG TAB PO SCH (09:00)
[2021-05-05] MEDS: MESALAMINE 400 MG CAP PO SCH ×2 (09:00→17:00)
[2021-05-05] MEDS: APIXABAN 2.5 MG TABLET PO SCH ×2 (09:00→17:07)
[2021-05-05] MEDS ORDERED: POTASSIUM CHLORIDE 20 MEQ POWDER PACKET GT SCH (09:00)
[2021-05-05] MEDS: IV D5W 1,000 ML IV PRN ×2 (09:10→20:46)
[2021-05-05] MEDS: MEMANTINE HCL 5 MG TABLET PO SCH ×2 (09:49→17:07)
--- NOTE | 2021-05-05 09:50 | NUR ---
RN NOTE PATIENT HAS AN NG TUBE FOR MEDICATION ADMINISTRATION. 3 AM MEDS (DELZICOL, NIFEDIPINE AND CARBIDOPA) CAN NOT BE CRUSHED. WILL CONTINUE TO MONITOR.
[2021-05-05 10:57] LABS: BASOPHILS % (AUTO) 0.2 % (0.0-2.0); HEMATOCRIT 32 % (39-51); HEMOGLOBIN 10.7 g/dL (13.5-17.5); LYMPHOCYTES # (AUTO) 0.3 K/uL (0.8-4.8); LYMPHOCYTES % (AUTO) 2.3 % (20.0-44.0); MEAN CORPUSCULAR HGB CONC 33 g/dl (31.0-36.0); MEAN CORPUSCULAR VOLUME 95 fL (80-96); MONOCYTES # (AUTO) 0.6 K/uL (0.1-1.30); NEUTROPHILS # (AUTO) 11.5 K/uL (1.8-8.9); NEUTROPHILS % (AUTO) 92.5 % (43.0-81.0); PLATELET COUNT (AUTO) 233 K/uL (150-450); RED BLOOD CELL COUNT(AUTO) 3.41 MIL/uL (4.5-6.0); WHITE BLOOD COUNT (AUTO) 12.4 K/uL (4.3-11.0)
[2021-05-05 12:00] VITALS: BP 161/90
--- NOTE | 2021-05-05 14:02 | NUR ---
RN OPENING NOTE PATIENT RECEIVED IN BED, EYES CLOSED. PATIENT ON VENTURI MASK AT 5L O2 WITH SOME SIGNS OF LABORED BREATHING SATURATING 94% OF BEDSIDE MONITOR. G TUBE IN PLACE RUNNING JEVITY 1.2 AT 40 CC/HR. LEFT UA MIDLINE, LEFT AC 18G SL, RIGHT AC 20G SL RUNNING D5W AT 100CC/HR. NO SIGNS OF ACUTE DISTRESS NOTED AT THIS TIME. BED LOCKED AND IN LOWEST POSITION, CALL LIGHT WITHIN REACH, 2 SIDE RAILS UP. WILL CONTINUE TO MONITOR.
[2021-05-05] MEDS: JEVITY 1.2 CAL 1,000 ML BOTTLE GT PRN (14:55)
--- NOTE | 2021-05-05 15:20 | NUR ---
RN NOTE PER DR. TALAVERA, NG TUBE NEEDS TO BE ADVANCED 5CM. 5CM ADVANCED WITH READING OF 56 AT NOSTRIL. CXR TO BE ORDER STAT. WILL CONTINUE TO MONITOR.
[2021-05-05 16:00] VITALS: BP 146/84
--- NOTE | 2021-05-05 19:10 | NUR ---
RN NOTES RECEIVED REPORT FROM MORNING RN PATIENT IN BED A/O X1 WITH PERIODS OF CONFUSION. WITH OXYGEN INHALATION VIA VENTURI MASK WITH 28% FIO2 TOLERATING WELL SATING 99%. WITH NGT PATENT NO GASTRIC RESIDUAL CONNECTED TO CONTINUOUS FEEDING JEVITY 1.2 AT 50CC/HR TOLERATING WELL. WITH CARSON CATHETER CONNECTED TO URINE BAG DRAINING WELL YELLOWISH URINE OUTPUT. WITH BILATERAL SOFT WRIST RESTRAINTS AND BILATERAL MITTENS IN PLACE. VITAL SIGNS TAKEN AND RECORDED AFEBRILE. ALL SAFETY MEASURES IN PLACE AT ALL TIMES. HOB ELEVATED. CALL LIGHT WITHIN REACH. WILL CLOSELY MONITOR THE PATIENT
--- NOTE | 2021-05-05 19:27 | NUR ---
RN CLOSING NOTE PATIENT REMAINS IN BED, EYES OPEN, AT BEDSIDE. PATIENT ON VENTURI MASK AT 5L O2 WITH SOME SIGNS OF LABORED BREATHING SATURATING 94% OF BEDSIDE MONITOR. G TUBE IN PLACE RUNNING JEVITY 1.2 AT 40 CC/HR. LEFT UA MIDLINE, LEFT AC 18G SL, RIGHT AC 20G SL RUNNING D5W AT 100CC/HR. NO SIGNS OF ACUTE DISTRESS NOTED AT THIS TIME. BED LOCKED AND IN LOWEST POSITION, CALL LIGHT WITHIN REACH, 2 SIDE RAILS UP. WILL ENDORSE TO VICE PRINCIPAL NURSE.
[2021-05-05 20:00] VITALS: BP 160/81
[2021-05-06] VITALS: BP 140/75
[2021-05-06] MEDS: hydrALAZINE HCL 25 MG TABLET PO SCH ×3 (01:20→16:18)
[2021-05-06 04:00] VITALS: BP 145/80
[2021-05-06] MEDS: ALBUTEROL FS 2.5 MG/3 ML VIAL.NEB NEB SCH ×5 (04:10→20:16)
[2021-05-06] MEDS: IPRATROPIUM NEB FS 0.5 MG/2.5 ML AMPUL.NEB NEB SCH ×5 (04:10→20:16)
[2021-05-06] MEDS: HYDROCORTISONE SOD SUCCINATE 100 MG/2 ML VIAL IV SCH ×3 (05:07→20:54)
[2021-05-06] MEDS: ZOSYN IVPB 3.375 G in IV D5W 50ml IV SCH ×3 (05:38→17:51)
--- NOTE | 2021-05-06 06:40 | NUR ---
RN CLOSING NOTE PATIENT REMAINS IN BED, PATIENT ON VENTURI MASK AT 5L O2 WITH NO SIGNS OF LABORED BREATHING SATURATING 96% OF BEDSIDE MONITOR. NG TUBE IN PLACE RUNNING JEVITY 1.2 AT 40 CC/HR. LEFT UA MIDLINE, LEFT AC 18G SL, RIGHT AC 20G SL RUNNING D5W AT 100CC/HR. NO SIGNS OF ACUTE DISTRESS NOTED AT THIS TIME. BED LOCKED AND IN LOWEST POSITION, CALL LIGHT WITHIN REACH, 2 SIDE RAILS UP. WILL ENDORSE TO NEXT SHIFT NURSE.
[2021-05-06] MEDS: ACETYLCYSTEINE 10% SOLN 400 MG/4 ML VIAL NEB SCH ×2 (07:32→15:42)
--- NOTE | 2021-05-06 07:55 | NUR ---
RN OPENING NOTE PATIENT RECEIVED IN BED, EYES OPEN, AGITATED AND CONFUSED. PATIENT ON VENTURI MASK AT 5L O2 WITH SOME SIGNS OF LABORED BREATHING SATURATING 94% OF BEDSIDE MONITOR. G TUBE IN PLACE RUNNING JEVITY 1.2 AT 50 CC/HR, TOLERATING WELL. LEFT UA MIDLINE, LEFT AC 18G SL, RIGHT AC 20G SL RUNNING D5W AT 100CC/HR. NO SIGNS OF ACUTE DISTRESS NOTED AT THIS TIME. BED LOCKED AND IN LOWEST POSITION, CALL LIGHT WITHIN REACH, 2 SIDE RAILS UP. WILL CONTINUE TO MONITOR.
[2021-05-06 08:00] VITALS: BP 171/81
[2021-05-06] MEDS: ENSURE ENLIVE CHOC 237 ML CAN PO SCH ×2 (08:00→17:00)
[2021-05-06] MEDS: MESALAMINE 400 MG CAP PO SCH ×2 (09:00→17:00)
[2021-05-06] MEDS: NIFEdipine XL (30MG) 30 MG TAB PO SCH (09:00)
[2021-05-06] MEDS: CARBIDOPA/LEV CR 50/200 MG 1 UDTAB.SA PO SCH ×2 (09:00→17:00)
--- NOTE | 2021-05-06 09:05 | NUR ---
RN NOTE PATIENT UNABLE TO SWALLOW MEDICATION, PENDING REPEAT SWALLOW EVAL. 3 MEDICATION UNABLE TO BE CRUSHED, HELD AT THIS TIME. OTHER MEDS WILL BE ADMINISTERED THROUGH NG TUBE. WILL CONTINUE TO MONITOR.
[2021-05-06] MEDS: PYRIDOSTIGMINE BROMIDE 60 MG TABLET PO SCH ×3 (09:13→20:54)
[2021-05-06] MEDS: PANTOPRAZOLE 40 MG/PACK PACK NG SCH (09:13)
[2021-05-06] MEDS: MEMANTINE HCL 5 MG TABLET PO SCH ×3 (09:13→20:53)
[2021-05-06] MEDS: APIXABAN 2.5 MG TABLET PO SCH ×3 (09:14→20:54)
[2021-05-06] MEDS: IV D5W 1,000 ML IV PRN ×2 (09:16→21:00)
[2021-05-06 12:00] VITALS: BP 115/73
[2021-05-06 16:00] VITALS: BP 175/89
--- NOTE | 2021-05-06 18:40 | NUR ---
RN NOTE UNABLE TO ADMINISTER PM AFTERNOON, PENDING NEW CXR TO CONFIRM PLACEMENT OF NEW NG TUBE TO ADMINISTER MEDS AND FEEDING. WILL CONTINUE TO MONITOR.
--- NOTE | 2021-05-06 18:43 | NUR ---
RN CLOSING NOTE PATIENT REMAINS IN BED, EYES OPEN. PATIENT ON ROOM AIR AT THIS TIME, VENTURI MASK AT BEDSIDE NEEDED. NG TUBE IN PLACE, NO FEEDING AT THIS TIME PENDING REPORT FOR PROPER PLACEMENT BY CXR CONFIRMATION. LEFT UA MIDLINE, LEFT AC 18G SL, RIGHT AC 20G SL RUNNING D5W AT 100CC/HR. NO SIGNS OF ACUTE DISTRESS NOTED AT THIS TIME. BED LOCKED AND IN LOWEST POSITION, CALL LIGHT WITHIN REACH, 2 SIDE RAILS UP. WILL ENDORSE TO FLYING TEACHER NURSE.
--- NOTE | 2021-05-06 19:10 | NUR ---
RN NOTES RECEIVED REPORT FROM MORNING RN PATIENT IN BED A/O X1 WITH PERIODS OF CONFUSION. AT BEDSIDE. WITH NGT IN PLACE. WITH IV ACCESS AT [facility] MIDLINE PATENT FLUSHES WELL WITH LAC # 18 AND RAC #20 PATENT FLUSHES WELL .WITH CARSON CATHETER CONNECTED TO URINE BAG DRAINING WELL YELLOWISH URINE OUTPUT. WITH BILATERAL SOFT WRIST RESTRAINTS IN PLACE. VITAL SIGNS TAKEN AND RECORDED AFEBRILE. ALL SAFETY MEASURES IN PLACE AT ALL TIMES. HOB ELEVATED. BED ON LOWEST POSITION AND LOCKED CALL LIGHT WITHIN REACH. WILL CLOSELY MONITOR THE PATIENT
--- NOTE | 2021-05-06 19:39 | NUR ---
RN NOTES RELAYED CXRAY RESULT FOR CONFIRMATION OF NGT PLACEMENT TO DR. YIP WITH ORDER TO RESUME ALL MEDS AND GT FEEDING.
[2021-05-06 20:00] VITALS: BP 154/91
[2021-05-06] MEDS: JEVITY 1.2 CAL 1,000 ML BOTTLE GT PRN (21:04)
[2021-05-07] VITALS: BP_SYST 109; BP_SYST 111; BP_SYST 155; BP_DIAS 60; BP_DIAS 74; BP_DIAS 82
[2021-05-07] MEDS: IPRATROPIUM NEB FS 0.5 MG/2.5 ML AMPUL.NEB NEB SCH ×7 (00:10→23:47)
[2021-05-07] MEDS: ALBUTEROL FS 2.5 MG/3 ML VIAL.NEB NEB SCH ×7 (00:10→23:47)
[2021-05-07] MEDS: ACETYLCYSTEINE 10% SOLN 400 MG/4 ML VIAL NEB SCH ×4 (00:10→23:47)
[2021-05-07] MEDS: ZOSYN IVPB 3.375 G in IV D5W 50ml IV SCH ×4 (00:47→18:33)
[2021-05-07 04:00] VITALS: BP 150/80
[2021-05-07] MEDS: HYDROCORTISONE SOD SUCCINATE 100 MG/2 ML VIAL IV SCH ×3 (05:21→16:42)
--- NOTE | 2021-05-07 06:50 | NUR ---
RN NOTES PATIENT REMAINS IN STABLE CONDITION THIS SHIFT NO SIGNIFICANT CHANGES. ALL DUE MEDS GIVEN ORDERED. GT INTACT PATENT FOR FEEDING. CARSON PATENT DRAINING WELL. WITH BILATERAL SOFT RESTRAINTS IN PLACE.ALL DUE MEDS GIVEN ORDERED. HOB ELEVATED. CALL LIGHT WITHIN REACH. BED ON LOWEST POSITION AND LOCKED. WILL CONTINUE TO MONITOR
--- NOTE | 2021-05-07 07:42 | NUR ---
RN NOTES PATIENT IN BED A/O X1 WITH PERIODS OF CONFUSION. WITH NGT IN PLACE. WITH IV ACCESS AT [facility] MIDLINE PATENT FLUSHES WELL WITH LAC # 18 AND RAC #20 PATENT FLUSHES WELL .WITH CARSON CATHETER CONNECTED TO URINE BAG DRAINING WELL YELLOWISH URINE OUTPUT. WITH BILATERAL SOFT WRIST RESTRAINTS IN PLACE. VITAL . ALL SAFETY MEASURES IN PLACE AT ALL TIMES. HOB ELEVATED. BED ON LOWEST POSITION AND LOCKED CALL LIGHT WITHIN REACH.
[2021-05-07 08:00] VITALS: BP 78/80
[2021-05-07] MEDS: ENSURE ENLIVE CHOC 237 ML CAN PO SCH (08:00)
[2021-05-07] MEDS: NIFEdipine XL (30MG) 30 MG TAB PO SCH (09:04)
[2021-05-07] MEDS: MEMANTINE HCL 5 MG TABLET PO SCH (09:04)
[2021-05-07] MEDS: MESALAMINE 400 MG CAP PO SCH ×2 (09:05→16:33)
[2021-05-07] MEDS: PANTOPRAZOLE 40 MG/PACK PACK NG SCH (09:05)
[2021-05-07] MEDS: PYRIDOSTIGMINE BROMIDE 60 MG TABLET PO SCH (09:05)
[2021-05-07] MEDS: APIXABAN 2.5 MG TABLET PO SCH (09:07)
[2021-05-07] MEDS: CARBIDOPA/LEV CR 50/200 MG 1 UDTAB.SA PO SCH (09:12)
[2021-05-07] MEDS ORDERED: PHARMACY TO CHANGE PO MEDS TO GT/NG XX PRN (09:30)
[2021-05-07] MEDS: IV D5W 1,000 ML IV PRN (09:37)
[2021-05-07] MEDS ORDERED: ACETAMINOPHEN 650 MG/20.3 ML UDC GT PRN (10:00)
[2021-05-07] MEDS: hydrALAZINE HCL 25 MG TABLET GT SCH ×2 (12:00→18:34)
[2021-05-07 16:00] VITALS: BP 106/56
[2021-05-07] MEDS: APIXABAN 2.5 MG TABLET GT SCH (16:32)
[2021-05-07] MEDS: PYRIDOSTIGMINE BROMIDE 60 MG TABLET GT SCH (16:38)
[2021-05-07] MEDS: CARBIDOPA/LEV CR 50/200 MG 1 UDTAB.SA GT SCH (16:40)
[2021-05-07] MEDS: MEMANTINE HCL 5 MG TABLET GT SCH (16:41)
[2021-05-07] MEDS: ENSURE ENLIVE CHOC 237 ML CAN GT SCH (16:49)
[2021-05-07] MEDS: JEVITY 1.2 CAL 1,000 ML BOTTLE GT PRN (18:39)
--- NOTE | 2021-05-07 19:04 | NUR ---
RN CLOSING NOTES PATIENT IN BED A/O X1 WITH PERIODS OF CONFUSION. WITH NGT IN PLACE. WITH IV ACCESS AT [facility] MIDLINE PATENT FLUSHES WELL WITH LAC # 18 AND RAC #20 PATENT FLUSHES WELL .WITH CARSON CATHETER CONNECTED TO URINE BAG DRAINING WELL YELLOWISH URINE OUTPUT. WITH BILATERAL SOFT WRIST RESTRAINTS IN PLACE. VITAL . ALL SAFETY MEASURES IN PLACE AT ALL TIMES. HOB ELEVATED. BED ON LOWEST POSITION AND LOCKED CALL LIGHT WITHIN REACH. WILL ENDORSE TO NIGHT NURSE FOR BECCA.
--- NOTE | 2021-05-07 19:30 | NUR ---
RN OPENING NOTE RECEIVED PATIENT IN BED, NON-VERBAL. NO S/S OF APPARENT DISTRESS ON ROOM AIR, MOUTH BREATHER. NOT EXHIBITING PAIN VIA FLACC. NG TUBE 65 CM ON L NARE RUNNING JEVITY @30CC/HR. IV D5W RUNNING AT 100ML/HR. BILATERAL SOFT WRIST RESTRAINTS IN PLACE. SAFETY IN PLACE. WILL CONTINUE WITH PATIENT'S CARE PLAN.
[2021-05-08] VITALS: BP 109/60
[2021-05-08] MEDS: ZOSYN IVPB 3.375 G in IV D5W 50ml IV SCH ×4 (00:25→18:10)
[2021-05-08] MEDS: IV D5W 1,000 ML IV PRN ×2 (00:33→17:28)
[2021-05-08] MEDS: ALBUTEROL FS 2.5 MG/3 ML VIAL.NEB NEB SCH ×6 (05:22→23:01)
[2021-05-08] MEDS: IPRATROPIUM NEB FS 0.5 MG/2.5 ML AMPUL.NEB NEB SCH ×6 (05:22→23:01)
[2021-05-08] MEDS: hydrALAZINE HCL 25 MG TABLET GT SCH ×4 (05:24→17:29)
--- NOTE | 2021-05-08 06:46 | NUR ---
MS RN CLOSING NOTE PATIENT IN BED WITH EYES CLOSED, EASY TO AROUSE. A/OX1. NO S/S OF APPARENT DISTRESS ON ROOM AIR AT THIS TIME. NOT EXHIBITING PAIN VIA FLACC. JEVITY RUNNING AT 60CC/HR-- <5 CC OF RESIDUAL, TOLERATING WELL-- IN THE L. NARE NGT 65CM. L.UA MIDLINE RUNNING IV D5W @100CC/HR. BILATERAL SOFT WRING RESTRAINTS AND L. MITTEN REMAINS IN PLACE AND WAS RENEWED. ALL NEEDS ATTENDED. APREZOLINE HELD, ALL SCHEDULED MEDS ADMINISTERED. SAFETY KEPT IN PLACE THE WHOLE SHIFT. WILL ENDORSE TO MORNING SHIFT RN FOR CONTINUITY OF CARE.
--- NOTE | 2021-05-08 07:35 | NUR ---
RN OPENING NOTE RECEIVED PATIENT IN BED, NON-VERBAL. NO S/S OF APPARENT DISTRESS ON ROOM AIR, MOUTH BREATHER. NOT EXHIBITING PAIN VIA FLACC. NG TUBE 65 CM ON L NARE RUNNING JEVITY 1.2 @50CC/HR. IV D5W RUNNING AT 100ML/HR. BILATERAL SOFT WRIST RESTRAINTS IN PLACE. SAFETY IN PLACE. WILL MONITOR PATIENT THROUGHOUT SHIFT.
--- NOTE | 2021-05-08 07:40 | NUR ---
MS RN OPENING NOTE PATIENT IS AWAKE SITTING AT EDGE OF BED. A/O X 3. NO S/SX OF DISTRESS NOTED. NO SOB. BREATHING IS EVEN AND UNLABORED, TOLERATING WELL ON ROOM AIR. NO C/O PAIN. IV ACCESS RFA#20 PATENT AND INTACT. PT WITH RCW HD CATH PATENT AND INTACT. SAFETY MEASURES IN PLACE WITH BED LOCKED IN LOW POSITION WITH SIDE RAILS UP X 2. CALL LIGHT IS WITHIN REACH. WILL CONTINUE TO MONITOR PATIENT THROUGHOUT SHIFT. Addendum: 05/08/21 at 1924 by SARAH TRAMMELL RN ERROR WRONG PT
[2021-05-08] MEDS: ACETYLCYSTEINE 10% SOLN 400 MG/4 ML VIAL NEB SCH ×3 (07:53→23:00)
[2021-05-08 08:00] VITALS: BP 118/55
[2021-05-08] MEDS: ENSURE ENLIVE CHOC 237 ML CAN GT SCH ×2 (08:11→17:04)
[2021-05-08] MEDS: NIFEdipine XL (30MG) 30 MG TAB PO SCH (09:00)
[2021-05-08] MEDS: MESALAMINE 400 MG CAP PO SCH ×2 (09:42→17:04)
[2021-05-08] MEDS: PYRIDOSTIGMINE BROMIDE 60 MG TABLET GT SCH ×2 (09:42→17:04)
[2021-05-08] MEDS: MEMANTINE HCL 5 MG TABLET GT SCH ×2 (09:43→17:04)
[2021-05-08] MEDS: HYDROCORTISONE SOD SUCCINATE 100 MG/2 ML VIAL IV SCH ×2 (09:45→17:04)
[2021-05-08 09:56] LABS: BASOPHILS % (AUTO) 0.1 % (0.0-2.0); EOSINOPHILS % (AUTO) 0.1 % (0.0-6.0); HEMATOCRIT 29 % (39-51); HEMOGLOBIN 9.7 g/dL (13.5-17.5); LYMPHOCYTES # (AUTO) 0.7 K/uL (0.8-4.8); LYMPHOCYTES % (AUTO) 7.8 % (20.0-44.0); MEAN CORPUSCULAR HGB CONC 34 g/dl (31.0-36.0); MEAN CORPUSCULAR VOLUME 95 fL (80-96); MONOCYTES # (AUTO) 0.8 K/uL (0.1-1.30); PLATELET COUNT (AUTO) 238 K/uL (150-450); RED BLOOD CELL COUNT(AUTO) 3.03 MIL/uL (4.5-6.0); WHITE BLOOD COUNT (AUTO) 8.4 K/uL (4.3-11.0)
[2021-05-08] MEDS: APIXABAN 2.5 MG TABLET GT SCH ×2 (09:59→17:05)
[2021-05-08] MEDS: CARBIDOPA/LEV CR 50/200 MG 1 UDTAB.SA GT SCH ×2 (09:59→17:13)
[2021-05-08] MEDS: PANTOPRAZOLE 40 MG/PACK PACK NG SCH (09:59)
[2021-05-08 10:28] LABS: CALCIUM, SERUM 7.4 mg/dL (8.5-10.1); CARBON DIOXIDE 30 mmol/L (21-32); CHLORIDE 94 mmol/L (98-107); CREATININE 1.8 mg/dL (0.6-1.3); GLUCOSE 258 mg/dL (74-106); SODIUM SERUM 132 mmol/L (136-145); UREA NITROGEN, BLOOD 37 mg/dL (7-18)
[2021-05-08 10:30] LABS: POTASSIUM 2.8 mmol/L (3.5-5.1)
[2021-05-08] MEDS: POTASSIUM CHLORIDE 20 MEQ POWDER PACKET GT SCH ×3 (11:08→12:57)
[2021-05-08] MEDS ORDERED: POTASSIUM CHLORIDE 20 MEQ POWDER PACKET GT SCH (12:30)
[2021-05-08 16:00] VITALS: BP 142/67
[2021-05-08] MEDS: JEVITY 1.2 CAL 1,000 ML BOTTLE GT PRN (17:29)
--- NOTE | 2021-05-08 19:00 | NUR ---
RN NOTE RECEIVED PATIENT IN BED RESTING ALERT ORIENTED X1 ON 2L OXYGEN VIA NASAL CANNULA ON NGT ON JEVITY 1.2 60CC/HR CHECKED PLACEMENT IN PLACE NO RESIDUAL NOTED,CARSON CATHETER IN PLACE URINE DRAINING YELLOW AND CLEAR BY GRAVITY,BILATER UPPER EXTREMITIES MULTIPLIES BRUISES,IV SITE IS ON LEFT UPPER ARM MID LINE AND LEFT FOREARM AND RIGHT AC INTACT PATENT,IV HYDRATION D5W 100 CC/HR RUNNING HEAD OF THE BED ELEVATED CONTINUE TO MONITOR
--- NOTE | 2021-05-08 19:26 | NUR ---
RN CLOSING NOTE PATIENT IN BED, NON-VERBAL. NO S/S OF APPARENT DISTRESS ON ROOM AIR, MOUTH BREATHER. NOT EXHIBITING PAIN VIA FLACC. NG TUBE 65 CM ON L NARE RUNNING JEVITY 1.2 @60CC/HR. IV D5W RUNNING AT 100ML/HR. BILATERAL SOFT WRIST RESTRAINTS IN PLACE. SAFETY IN PLACE. WILL ENDORSE CONTINUITY OF CARE.
[2021-05-09] VITALS: BP 103/52
[2021-05-09] MEDS: ZOSYN IVPB 3.375 G in IV D5W 50ml IV SCH ×2 (00:08→06:18)
[2021-05-09] MEDS: ALBUTEROL FS 2.5 MG/3 ML VIAL.NEB NEB SCH ×6 (02:57→23:09)
[2021-05-09] MEDS: IPRATROPIUM NEB FS 0.5 MG/2.5 ML AMPUL.NEB NEB SCH ×6 (02:57→23:09)
[2021-05-09] MEDS: IV NS 0.9% 1,000 ML IV PRN ×2 (03:48→23:55)
[2021-05-09] MEDS: hydrALAZINE HCL 25 MG TABLET GT SCH ×4 (06:19→17:54)
--- NOTE | 2021-05-09 07:28 | NUR ---
RN NOTE PATIENT REMAINS ALERT ORIENTED X1 ON 2L OXYGEN VIA NASAL CANNULA O2:98% NO SOB NOT ACUTE DISTRESS NOTED,ALL DUE MEDS GIVEN MD ORDERED KEPT CLEAN AND DRY ALL THE TIME ALL NEEDS MET ENDORSE NEXT COMING SHIFT FOR CONTINUATION OF CARE.
[2021-05-09] MEDS: ACETYLCYSTEINE 10% SOLN 400 MG/4 ML VIAL NEB SCH ×3 (07:41→23:09)
[2021-05-09 07:56] LABS: CALCIUM, SERUM 8.2 mg/dL (8.5-10.1); CARBON DIOXIDE 31 mmol/L (21-32); CHLORIDE 91 mmol/L (98-107); CREATININE 1.7 mg/dL (0.6-1.3); GLUCOSE 212 mg/dL (74-106); POTASSIUM 3.2 mmol/L (3.5-5.1); SODIUM SERUM 129 mmol/L (136-145); UREA NITROGEN, BLOOD 40 mg/dL (7-18)
--- NOTE | 2021-05-09 07:56 | NUR ---
RN OPENING NOTES PATIENT IS AWAKE IN BED RESTING, A/O X1. NO S/S OF PAIN NOTED AT THIS TIME. ON 2L OXYGEN VIA NC, NO DISTRESS OR SHORTNESS OF BREATH NOTED. IV ACCESS ASYA MIDLINE WITH NS AT 100 ML/HR, AND RAC #20G INTACT, PATENT AND FLUSHING WELL. PATIENT HAVE CARSON CATHETER, IN PLACED AND DRAINING WELL. FALL AND SAFETY MEASURES IN PLACE, BED ALARM ON, BED IN LOW AND LOCK POSITION, CALL LIGHT AND TABLE WITHIN EASY REACH, SIDE RAIL UP X2. WILL CONTINUE TO MONITOR.
[2021-05-09 08:00] VITALS: BP 168/70
[2021-05-09] MEDS: ENSURE ENLIVE CHOC 237 ML CAN GT SCH (08:00)
[2021-05-09] MEDS ORDERED: POTASSIUM CHLORIDE 20 MEQ POWDER PACKET GT SCH (09:00)
[2021-05-09] MEDS: MEMANTINE HCL 5 MG TABLET GT SCH ×2 (09:47→17:52)
[2021-05-09] MEDS: PANTOPRAZOLE 40 MG/PACK PACK NG SCH (09:47)
[2021-05-09] MEDS: HYDROCORTISONE SOD SUCCINATE 100 MG/2 ML VIAL IV SCH ×2 (09:47→17:54)
[2021-05-09] MEDS: POTASSIUM CHLORIDE 20 MEQ POWDER PACKET GT SCH (09:48)
[2021-05-09] MEDS: MESALAMINE 400 MG CAP PO SCH ×2 (09:48→17:51)
[2021-05-09] MEDS: PYRIDOSTIGMINE BROMIDE 60 MG TABLET GT SCH ×2 (09:48→17:52)
[2021-05-09] MEDS: NIFEdipine XL (30MG) 30 MG TAB PO SCH (09:49)
[2021-05-09] MEDS: APIXABAN 2.5 MG TABLET GT SCH ×2 (09:50→17:00)
[2021-05-09] MEDS: JEVITY 1.2 CAL 1,000 ML BOTTLE GT PRN (10:22)
[2021-05-09] MEDS: CARBIDOPA/LEV CR 50/200 MG 1 UDTAB.SA GT SCH ×2 (11:08→17:52)
--- NOTE | 2021-05-09 11:09 | NUR ---
RN NOTE PATIENT IS CURRENTLY ON JEVITY 1.2 @ 30ML/HR, ENSURE NOT ADMINISTERED.
[2021-05-09 16:00] VITALS: BP 123/61
--- NOTE | 2021-05-09 17:55 | NUR ---
RN NOTE PATIENT 1700 ELIQUIS WAS NOT ADMINISTERED, PATIENT IS GOING FOR SURGERY.
[2021-05-09] MEDS ORDERED: ANESTHESIA TRAY IN PYXIS 1 EA TRAY MC ONE (19:41)
--- NOTE | 2021-05-09 19:54 | NUR ---
RN NOTE SPOKE WITH PHARMACY, ASKING FOR CLARIFICATION OF WHY POTASSIUM REPLACEMENT WAS DC FOR THIS AM 40 MEQ, K IS 3.2 THIS AM. PHARMACY STATES THERE WAS AN HOURS BEFORE AND AFTER SCHEDULED DOSE THAT YOU ARE ABLE TO GIVE. MEDICATION NOT GIVEN DURING AM SHIFT, INFORMED THEM PATIENT IS SCHEDULED FOR SURGERY AT 8PM. PHARMACY STATES RE-ENTER ORDER FOR AFTER SURGERY.
--- NOTE | 2021-05-09 19:58 | NUR ---
RN CLOSING NOTES PATIENT IS AWAKE IN BED RESTING, A/O X1. NO S/S OF PAIN NOTED AT THIS TIME. ON 2L OXYGEN VIA NC, NO DISTRESS OR SHORTNESS OF BREATH NOTED. IV ACCESS ASYA MIDLINE WITH NS AT 100 ML/HR, AND RAC #20G INTACT, PATENT AND FLUSHING WELL. PATIENT HAVE CARSON CATHETER, IN PLACED AND DRAINING WELL. PATIENT NPO SINCE 1330 TODAY. 1700 MEDICATION ADMINISTERED EXCEPT FOR ELIQUIS. PATIENT WAS TURNED AND REPOSITIONED PER PROTOCOL. FALL AND SAFETY MEASURES IN PLACE, BED ALARM ON, BED IN LOW AND LOCK POSITION, CALL LIGHT AND TABLE WITHIN EASY REACH, SIDE RAIL UP X2. WILL ENDORSE TO [facility].
[2021-05-09 20:00] VITALS: BP 116/55
--- NOTE | 2021-05-09 20:00 | NUR ---
RN NOTE CALLED OR/ SURGERY ROOM TO CONFIRM PATIENT IS GOING FOR SURGERY TONIGHT. STATED THEY WILL GENERAL PARTNER PATIENT SOON.
--- NOTE | 2021-05-09 21:00 | NUR ---
RN NOTE RECTAL TEMP 94.7, WARM BLANKETS APPLIED.
--- NOTE | 2021-05-09 21:30 | NUR ---
RN NOTE CALLED OR/SURGERY, NO ANSWER. WILL TRY AGAIN LATER. Addendum: 05/09/21 at 2334 by LURDES FELDMAN RN RN LABORATORY APPARATUS GLASS GRINDER SHEILA AND STAPLE LASTERANANDA PERKINS.
--- NOTE | 2021-05-09 22:30 | NUR ---
RN NOTE CALLED OR/SURGERY, NO ANSWER. WILL TRY AGAIN LATER. CUSTOMER EXPERIENCE ANALYST, AND RN TOUR CONDUCTOR AWARE.
--- NOTE | 2021-05-09 23:30 | NUR ---
RN NOTE CONFIRMED NO ONE IN OR/SURGERY ROOM. PATIENT PENDING PEG PLACEMENT SURGERY. STILL NPO AT THIS TIME. WILL CALL EVENT MARKETING REPRESENTATIVE DR. DIOP FOR POTASSIUM REPLACEMENT THAT WAS NOT GIVEN. INFRASTRUCTURE ENGINEER AWARE. RN DETECTOR CAR OPERATOR AWARE.
--- NOTE | 2021-05-09 23:38 | NUR ---
RN NOTE CALLED DR. DIOP AND INFORMED HIM OF SITUATION, OK K BEING 3.2, NO REPLACEMENT GIVEN. RECEIVED ORDERS TO REPLACE K 80MEQ, 2 PACKETS, ORDERED EARLIER AND A REPEAT POTASSIUM LEVEL IN AM. ORDERS READ BACK, NOTED AND CARRIED OUT.
--- NOTE | 2021-05-09 23:44 | NUR ---
RN NOTE INFORMED JADON PREVIOUS ORDER WAS FOR 40MEQ KLOR PACKET TOTAL NOT 80MEQ KLOR PACKET. RECEIVED NEW ORDER GOT 60MEQ KLOR. ORDER READ BACK NOTED AND CARRIED OUT.
--- NOTE | 2021-05-09 23:50 | NUR ---
RN NOTE CALLED [facility] TO VERIFY MEDICATION.
[2021-05-10] VITALS: BP 114/68
[2021-05-10] MEDS ORDERED: DEXTROSE 50%-WATER 50 ML DISP.SYRIN IV PRN
[2021-05-10] MEDS ORDERED: POTASSIUM CHLORIDE 20 MEQ POWDER PACKET GT ONE
[2021-05-10] MEDS: BLOOD SUGAR DIAGNOSTIC 1 EACH STRIP IN SCH ×5 (00:16→22:02)
--- NOTE | 2021-05-10 00:23 | NUR ---
RN NOTE NONADMINISTERED HYDRALIZINE AT 0000 , ORDER PARAMETERS NOT MET. NOTE SECTION STATES TO ADMINISTER IF SBP GREATER THAN 160, BP 114/ [address] DIOP THAT PATIENT WAS ACTUALLY GIVEN 40MEQ KCLOR PACKET THIS AM. THE ONE TIME DC'D ORDER WAS D/T IT WAS CHANGED TO 40MEQ KCLOR PACKET DAILY STARTED 05/09/21. REPLACEMENT WAS GIVEN EARLIER A SCHEDULED MEDICATION. RECEIVED NEW ORDER TO DC 60MEQ ONE TIME ORDER THAT WAS RECEIVED EARLIER. BLOOD SUGAR 136, NO INSULIN COVERAGE PATIENT IS NPO FOR PEG PLACEMENT.
[2021-05-10] MEDS: ALBUTEROL FS 2.5 MG/3 ML VIAL.NEB NEB SCH ×6 (03:30→23:19)
[2021-05-10] MEDS: IPRATROPIUM NEB FS 0.5 MG/2.5 ML AMPUL.NEB NEB SCH ×6 (03:30→23:19)
[2021-05-10] MEDS: hydrALAZINE HCL 25 MG TABLET GT SCH ×5 (06:00→23:42)
--- NOTE | 2021-05-10 07:30 | NUR ---
RN OPENING NOTES RECEIVED PATIENT AWAKE IN BED. A/O X 1. NOT IN DISTRESS NO COMPLAINTS OF PAIN NOTED. O2 @ 2LPM VIA NC WITH O2 SAT OF 97%. NGT AT LEFT NARE IN PLACE. PATIENT ON NPO FOR SCHEDULED GT PLACEMENT. CONSENT SIGNED ON CHART. WITH LEFT SOFT RESTRAINT AND RIGHT MITTEN RESTRAINT DUE FOR RENEWAL AT 05/11/21 0100. ASYA MIDLINE PATENT AND INTACT WITH IVF RUNNING NS @ 100CCHR. FC INTACT AND IN PLACE. HOB ELEVATED. BED TO LOWEST POSITION AND LOCKED.
--- NOTE | 2021-05-10 07:50 | NUR ---
RN CLOSING NOTE PATIENT RESTING IN BED. A/OX1. ON 2L VIA NASAL CANNULA. RESPIRATION ARE EVEN AND UNLABORED. NO S/S SOB NOTED. NO S/S PAIN NOTED. CARSON CATHETER IS PRESENT, WOUND CARE FOR FOREARMS COMPLETE. BILATERAL SOFT WRIST RESTRAINTS AND MITTENS ON PATIENT. NO ADDITIONAL REDNESS NOTED. NG TUBE IN LEFT NARE AT 65CM. PATIENT HAS BEEN NPO. WAS SCHEDULED FOR SURGERY AT 8PM AT BEGINNING OF SHIFT. SURGERY TEAM DID NOT COME FOR PATIENT. CONSENTS FOR PEG IN CHART. SAFETY MEASURES IN PLACE. ENDORSED TO ONCOMING SHIFT.
[2021-05-10 08:00] VITALS: BP 152/79
[2021-05-10] MEDS: ACETYLCYSTEINE 10% SOLN 400 MG/4 ML VIAL NEB SCH ×3 (08:27→23:20)
[2021-05-10] MEDS: HYDROCORTISONE SOD SUCCINATE 100 MG/2 ML VIAL IV SCH ×2 (08:31→17:05)
[2021-05-10] MEDS: INSULIN REGULAR, HUMAN 100 UNIT/ML 3 ML VIAL SQ PRN ×3 (08:32→17:07)
[2021-05-10] MEDS: CARBIDOPA/LEV CR 50/200 MG 1 UDTAB.SA GT SCH ×2 (09:00→17:00)
[2021-05-10] MEDS: NIFEdipine XL (30MG) 30 MG TAB PO SCH (09:00)
[2021-05-10] MEDS: MEMANTINE HCL 5 MG TABLET GT SCH ×2 (09:00→17:05)
[2021-05-10] MEDS: POTASSIUM CHLORIDE 20 MEQ POWDER PACKET GT SCH (09:00)
[2021-05-10] MEDS: MESALAMINE 400 MG CAP PO SCH ×2 (09:00→17:06)
[2021-05-10] MEDS: APIXABAN 2.5 MG TABLET GT SCH ×2 (09:00→17:06)
[2021-05-10] MEDS: PANTOPRAZOLE 40 MG/PACK PACK NG SCH (09:00)
[2021-05-10] MEDS: PYRIDOSTIGMINE BROMIDE 60 MG TABLET GT SCH ×2 (09:00→16:59)
[2021-05-10] MEDS ORDERED: POTASSIUM CL. PREMIX PERIPHER. 50 ML IV SCH (10:00)
--- NOTE | 2021-05-10 10:38 | NUR ---
RN NOTES PO AND NGT MEDS NOT GIVEN FOR PATIENT NPO AWAITING STILL FOR PATIENT'S GT PLACEMENT. ALEJANRDO CASILLAS MADE AWARE.
[2021-05-10] MEDS ORDERED: ANESTHESIA TRAY IN PYXIS 1 EA TRAY MC ONE (12:39)
--- NOTE | 2021-05-10 13:00 | NUR ---
RN NOTES PATIENT WAS TRANSPORTED TO OR VIA GURNEY IN STABLE CONDITION FOR PEG PLACEMENT.
[2021-05-10 14:00] VITALS: BP 101/59
--- NOTE | 2021-05-10 14:15 | NUR ---
RN NOTES PATIENT BACK FROM OR POST PEG PLACEMENT WITH ABDIMINAL BINDER IN PLACE IN STABLE CONDITON. V/S TAKEN TEMP 95.8 AXILLARY, HR 78, RR 20 O2 SAT 99% BP 95/59MMHG. POST OR ORDER TO RESUME MEDS THRU PEG AND TO RESUME FEEDING IN AM.
[2021-05-10 16:00] VITALS: BP 101/59
--- NOTE | 2021-05-10 17:07 | NUR ---
RN NOTES CALLED PHARMACY AND MADE AWARE SINEMET ORDER FOR PATIENT CAN'T BE CRUSHED PER ORDER ON EMAR AND PATIENT HAS PEG TUBE. PHARMACY STATED WILL LET DR. MAURICIO LEHMAN AWARE.
[2021-05-10] MEDS ORDERED: HYDROCORTISONE SOD SUCCINATE 100 MG/2 ML VIAL IV SCH (17:30)
--- NOTE | 2021-05-10 18:55 | NUR ---
RN CLOSING NOTES PATIENT AWAKE IN BED, A/O X 1. POST PEG PLACEMENT TO RESUME MEDICATION THROUGH PEG AND TO RESUME TF IN AM. NO BLEEDING ON THE RIGHT GROIN. AWARE OF POST PEG PLACEMENT TO KEEP HOB ELEVATED 40 DEGREES AT ALL TIMES. FOR CXR TOMORROW. BILATERAL MITTEN RESTRAIN IN PLACE. BED TO LOWEST POSITION AND LOCKED. WILL ENDORSE TO RESORT HOST NURSE ON DUTY
--- NOTE | 2021-05-10 19:30 | NUR ---
RN OPENING NOTE PATIENT IN BED, AWAKE. PATIENT IS A/O X 1, CONFUSED. PATIENT HAS 2LPM VIA NC, TOLERATING WELL. PATIENT HAS BILATERAL SOFT WRIST RESTRAINTS ON D/T RESTLESSNESS AND PULLING OUT LINES. PATIENT NOT IN ANY APPARENT DISTRESS. PATIENT HAS A GT WITH NO TF GOING AT THIS TIME. PER ALL MALAVE, TF TO BE RESTARTED IN AM. PATIENT HAS A ASYA MIDLINE PATENT AND INTACT WITH ON GOING IVF. SAFETY MEASURES IN PLACE: BED LOCKED AND IN LOWEST POSITION, CALL LIGHT WITHIN REACH, SIDE RAILS UP. HOB ELEVATED. WILL MONITOR PATIENT CLOSELY.
[2021-05-10 20:00] VITALS: BP 159/69
[2021-05-10] MEDS: CARBIDOPA/LEVODOPA 25/100 MG 1 UDTAB GT SCH (20:56)
--- NOTE | 2021-05-10 22:00 | NUR ---
BS 99 MG/DL. NO COVERAGE GIVEN, WILL MONITOR FOR HYPOGLYCEMIA.
[2021-05-10] MEDS: IV NS 0.9% 1,000 ML IV PRN (22:42)
[2021-05-11] MEDS: ALBUTEROL FS 2.5 MG/3 ML VIAL.NEB NEB SCH ×5 (03:36→20:20)
[2021-05-11] MEDS: IPRATROPIUM NEB FS 0.5 MG/2.5 ML AMPUL.NEB NEB SCH ×5 (03:36→20:20)
[2021-05-11 04:00] VITALS: BP 117/75
[2021-05-11] MEDS: hydrALAZINE HCL 25 MG TABLET GT SCH ×3 (05:08→17:17)
--- NOTE | 2021-05-11 06:43 | NUR ---
RN CLOSING NOTE PATIENT IN BED, AWAKE. PATIENT IS A/O X 1, CONFUSED. PATIENT HAS 2 LPM VIA NC, TOLERATING WELL. BREATHING EVEN AND UNLABORED. PATIENT OBSERVED TO HAVE MILD COUGHING. NOT IN ANY APPARENT DISTRESS. PATIENT HAS BILATERAL SOFT WRIST RESTRAINTS ON D/T RESTLESSNESS AND PULLING OUT LINES. MITTENS ALSO PRESENT. PATIENT HAS A GT , TF TO BE RESTARTED THIS AM. PATIENT HAS A ASYA MIDLINE PATENT AND INTACT WITH ON GOING NS @ 100 ML/HR. SAFETY MEASURES IN PLACE: BED LOCKED AND IN LOWEST POSITION, CALL LIGHT WITHIN REACH, SIDE RAILS UP. HOB ELEVATED. ALL NEEDS MET AND ATTENDED. ALL ORDERS CARRIED OUT. WILL ENDORSE TO DAY SHIFT NURSE FOR BECCA.
--- NOTE | 2021-05-11 07:20 | NUR ---
RN OPENING NOTES RECEIVED PATIENT IN BED, AWAKE. PATIENT IS A/O X 1, CONFUSED. RESPIRATIONS EVEN AND UNLABORED ON 2 LPM OF O2 VIA NC. NO DISTRESS NOTED AT THIS TIME. PATIENT HAS BILATERAL SOFT WRIST RESTRAINTS ON D/T RESTLESSNESS AND PULLING OUT LINES. MITTENS ALSO PRESENT. PATIENT HAS A GT IN PLACE AND PATENT, WILL START TUBE FEEDING THIS AM. PATIENT HAS A L UA MIDLINE PATENT AND INTACT WITH NS @ 100 ML/HR. SAFETY MEASURES IN PLACE: BED LOCKED AND IN LOWEST POSITION, CALL LIGHT WITHIN REACH, SIDE RAILS UP X2. HOB ELEVATED. WILL CONTINUE TO MONITOR PATIENT.
[2021-05-11 07:24] LABS: CALCIUM, SERUM 7.7 mg/dL (8.5-10.1); CREATININE 1.3 mg/dL (0.6-1.3); POTASSIUM 3.5 mmol/L (3.5-5.1)
[2021-05-11] MEDS: ACETYLCYSTEINE 10% SOLN 400 MG/4 ML VIAL NEB SCH ×2 (07:43→15:52)
[2021-05-11] MEDS: BLOOD SUGAR DIAGNOSTIC 1 EACH STRIP IN SCH ×4 (08:08→22:23)
[2021-05-11] MEDS: MEMANTINE HCL 5 MG TABLET GT SCH ×2 (08:09→16:50)
[2021-05-11] MEDS: PYRIDOSTIGMINE BROMIDE 60 MG TABLET GT SCH ×2 (08:09→16:50)
[2021-05-11] MEDS: CARBIDOPA/LEVODOPA 25/100 MG 1 UDTAB GT SCH ×4 (08:09→21:24)
[2021-05-11] MEDS: POTASSIUM CHLORIDE 20 MEQ POWDER PACKET GT SCH (08:09)
[2021-05-11] MEDS: APIXABAN 2.5 MG TABLET GT SCH ×2 (08:10→16:51)
[2021-05-11] MEDS ORDERED: HYDROCORTISONE SOD SUCCINATE 100 MG/2 ML VIAL IV SCH (09:00)
[2021-05-11] MEDS ORDERED: JEVITY 1.2 CAL 1,000 ML BOTTLE GT PRN (09:00)
[2021-05-11] MEDS ORDERED: AMLODIPINE BESYLATE 10 MG TABLET GT SCH (09:00)
[2021-05-11] MEDS: PANTOPRAZOLE 40 MG/PACK PACK NG SCH (09:03)
[2021-05-11 12:00] VITALS: BP 111/54
[2021-05-11] MEDS: IV NS 0.9% 1,000 ML IV PRN ×2 (12:32→23:35)
--- NOTE | 2021-05-11 14:41 | NUR ---
per binder caser patient refused snf and wants hospice per cm will discharge in AM.
--- NOTE | 2021-05-11 18:50 | NUR ---
RN CLOSING NOTES PATIENT IN BED. PATIENT TOLERATES 2L OF O2 VIA NC. NO DISTRESS NOTED THROUGH OUT SHIFT. PATIENT HAS BILATERAL SOFT WRIST RESTRAINTS IN PLACE D/T RESTLESSNESS AND PULLING OUT LINES. ALL PULSES PALPABLE AND NORMAL ALONG UPPER EXT. MITTENS ALSO PRESENT. STARTED PATIENT ON TUBE FEEDING THIS AM, JEVITY 1.2 @ 30 ML/HR, TOLERATED WELL AND ADVANCED TO 35ML/HR STILL TOLERATING WELL WITH MINIMAL RISIDUAL NOTED. L UA MIDLINE PATENT AND INTACT STILL RUNNING NS @ 100 ML/HR. PER EDUCATIONAL INTERPRETER, PATIENT'S REQUESTED FOR HIM TO BE DISCHARGE TO [facility] TOMORROW MORNING WITH HOSPICE CARE PLAN. SAFETY MEASURES IN PLACE: BED LOCKED AND IN LOWEST POSITION, CALL LIGHT WITHIN REACH, SIDE RAILS UP X2. HOB ELEVATED. WILL ENDORSE TO THE PSYCHOPAEDIC NURSE NURSE FOR BECCA
--- NOTE | 2021-05-11 19:15 | NUR ---
RN NOTE PT RECEIVED IN BED. PT IS ON 2L OF O2 VIA NC SHOWING NO SIGNS OF RESP DISTRESS. BREATHING EVEN AND UNLABORED. PT IS A/OX1, OPENS EYES, BUT NON-VERBAL. CARSON CATH NOTED. RESTRAINTS NOTED AND ALL SAFETY MEASURES INITIATED PER PROTOCOL. G-TUBE INTACT AND PATIENT RUNNING JEVITY AT 30 CC/HR. PT TOLERATING WELL. IV ACCESS NOTED ON LEFT UA ML. LINE FLUSHED, PATENT, AND INTACT WITH NO SIGNS OF INFILTRATION. 0.9% NS RUNNING AT 100 CC/HR. ALL SAFETY MEASURES IMPLEMENTED. HOB ELEVATED. BED LOCKED AND IN LOWEST POSITION. SIDE RAILS UP. WILL CONTINUE TO MONITOR AND ASSESS FOR ANY CHANGES DURING SHIFT.
[2021-05-11 20:00] VITALS: BP 104/71
[2021-05-11] MEDS: INSULIN REGULAR, HUMAN 100 UNIT/ML 3 ML VIAL SQ PRN (22:31)
[2021-05-12] MEDS: IPRATROPIUM NEB FS 0.5 MG/2.5 ML AMPUL.NEB NEB SCH ×3 (00:01→07:55)
[2021-05-12] MEDS: ALBUTEROL FS 2.5 MG/3 ML VIAL.NEB NEB SCH ×3 (00:01→07:55)
[2021-05-12] MEDS: ACETYLCYSTEINE 10% SOLN 400 MG/4 ML VIAL NEB SCH ×2 (00:01→07:55)
[2021-05-12 04:00] VITALS: BP 109/55
[2021-05-12 06:00] VITALS: BP 126/63
[2021-05-12] MEDS: hydrALAZINE HCL 25 MG TABLET GT SCH ×2 (06:00)
--- NOTE | 2021-05-12 06:38 | NUR ---
RN NOTE NO CHANGES IN PT CONDITION DURING SHIFT. PT IS ON 2L OF O2 VIA NC SHOWING NO SIGNS OF RESP DISTRESS. BREATHING EVEN AND UNLABORED. G-TUBE INTACT AND PATIENT RUNNING JEVITY AT 30 CC/HR. PT TOLERATING WELL. IV ACCESS NOTED ON LEFT UA ML. LINE FLUSHED, PATENT, AND INTACT WITH NO SIGNS OF INFILTRATION. 0.9% NS RUNNING AT 100 CC/HR. ALL SAFETY MEASURES IMPLEMENTED. HOB ELEVATED. BED LOCKED AND IN LOWEST POSITION. SIDE RAILS UP. WILL ENDORSE TO MORNING SHIFT RN FOR BECCA.
--- NOTE | 2021-05-12 07:36 | NUR ---
RN OPENING NOTE RECEIVED PATIENT IN BED, A/O X1, OPENS EYES OCCASIONALLY. PT IS ON 2L OF O2 VIA NC SHOWING NO SIGNS OF SOB. BREATHING EVEN AND UNLABORED. PT IS A/OX1, OPENS EYES, BUT NON-VERBAL. CARSON CATH NOTED. RESTRAINTS NOTED AND ALL SAFETY MEASURES INITIATED PER PROTOCOL. G-TUBE INTACT AND PATIENT RUNNING JEVITY AT 30 CC/HR. PT TOLERATING WELL. IV ACCESS NOTED ON LEFT UA ML. LINE FLUSHED, PATENT, AND INTACT WITH NO SIGNS OF INFILTRATION. 0.9% NS RUNNING AT 100 CC/HR. ALL SAFETY MEASURES IMPLEMENTED. HOB ELEVATED. BED LOCKED AND IN LOWEST POSITION. SIDE RAILS UP. WILL CONTINUE TO MONITOR.
--- NOTE | 2021-05-12 09:54 | NUR ---
CANDY VENDOR NOTE PATIENT RECEIVED BY [facility]. GAVE REPORT TO SONJA ARRIAZA. TRIED TO REACH [facility] FOR REPORT, LEFT VOICEMAIL. WILL F/U.
== END 2021-05-12 09:30 | disposition hospice, home (50) | DRG 871 ==
LOC: ER 13:37 → ICU 16:43 → TELE-TD 04-29 19:57 → TELE1 05-01 18:29 → MEDSG1 05-07 07:53
PROVIDERS: ADMIT Nurse Practitioner Acute Care; ATTEND Nurse Practitioner Acute Care
PROC: 05H633Z Insertion of Infusion Device into Left Subclavian Vein, Percutaneous Approach (ICD-10-PCS; 2021-05-01)
PROC: B547ZZA Ultrasonography of Left Subclavian Vein, Guidance (ICD-10-PCS; 2021-05-01)
PROC: 0DH63UZ Insertion of Feeding Device into Stomach, Percutaneous Approach (ICD-10-PCS; principal; 2021-05-10)
DX: A41.9 Sepsis, unspecified organism (principal); J69.0 Pneumonitis due to inhalation of food and vomit; J96.01 Acute respiratory failure with hypoxia; N17.0 Acute kidney failure with tubular necrosis; D68.59 Other primary thrombophilia; I50.32 Chronic diastolic (congestive) heart failure; E87.0 Hyperosmolality and hypernatremia; G93.40 Encephalopathy, unspecified; K51.90 Ulcerative colitis, unspecified, without complications; G90.3 Multi-system degeneration of the autonomic nervous system; Q61.3 Polycystic kidney, unspecified; I13.0 Hypertensive heart and chronic kidney disease with heart failure and stage 1 through stage 4 chronic kidney disease, or unspecified chronic kidney disease; J98.11 Atelectasis; K51.911 Ulcerative colitis, unspecified with rectal bleeding; N18.9 Chronic kidney disease, unspecified; K21.9 Gastro-esophageal reflux disease without esophagitis; E87.6 Hypokalemia; E86.0 Dehydration; E86.1 Hypovolemia; G20 Parkinson's disease; Z20.822 Contact with and (suspected) exposure to COVID-19; Z90.49 Acquired absence of other specified parts of digestive tract; N40.0 Benign prostatic hyperplasia without lower urinary tract symptoms; Z74.09 Other reduced mobility; G90.8 Other disorders of autonomic nervous system; I35.1 Nonrheumatic aortic (valve) insufficiency; K29.70 Gastritis, unspecified, without bleeding; R13.10 Dysphagia, unspecified; T17.990A Other foreign object in respiratory tract, part unspecified in causing asphyxiation, initial encounter; X58.XXXA Exposure to other specified factors, initial encounter; Y93.9 Activity, unspecified; Y92.129 Unspecified place in nursing home as the place of occurrence of the external cause
CPT/HCPCS: 31720; 36410; 36415; 43246; 71045-TC; 80048-TC; 80053-TC; 80061-TC; 80076-TC; 80202-TC; 81001; 82533; 82962-TC; 83540-TC; 83605-TC; 83735-TC; 84100-TC; 84132-TC; 84443-TC; 84484-TC; 85025-TC; 85730-TC; 87040-TC; 87081-TC; 87086-TC; 92526; 92611-TC; 93307-TC; 94003-TC; 94760-TC; 94762-TC; 94799-TC; A6253; A6403; C9113; C9803; G0378; J0690; J1720; J1815; J2543; J2704; J3370; J3475; J3480; J3490; J7030; J7042; J7050; J7060; J7070